=== PATIENT | female | born 1960 | race African-American/Black ===

== ENCOUNTER 2017-03-03 14:34 | Emergency (ER) | payer OTHER ==
[~2017-03-03] VITALS: Ht 162.6 cm; Wt 73.0 kg
[2017-03-03] MEDS ORDERED: SODIUM CHLORIDE 0.9% 1,000 ML IV ONE (20:00)
[2017-03-03] MEDS ORDERED: KETOROLAC 30MG/ML VIAL IV ONE (20:00)
[2017-03-03] MEDS ORDERED: FAMOTIDINE 20MG/2ML VIAL IV ONE (20:00)
[2017-03-03] MEDS ORDERED: ONDANSETRON HCL 4MG/2ML VIAL IV ONE (20:00)
[2017-03-03 20:35] LABS: BASOPHILS % 1.2 % (0.0-2.0); EOSINOPHILS % 0.7 % (0.0-5.0); HEMATOCRIT. 47.1 % (36.0-48.0); HEMOGLOBIN. 15.2 g/dL (12.0-16.0); LYMPHOCYTES % 21.6 % (20.0-50.0); MEAN CORPUSCULAR VOLUME 83.3 fL (81.0-99.0); MONOCYTES % 12.7 % (2.0-8.0); NEUTROPHILS % 63.8 % (40.0-76.0); PLATELET 232 x1000/uL (130-400); RED BLOOD CELL COUNT 5.65 mill/uL (4.2-5.4); RED CELL DISTRIBUTION WIDTH 14.2 % (11.6-14.6)
[2017-03-03 20:38] LABS: CHLORIDE 101 mEq/L (98-107)
[2017-03-03 20:47] LABS: CARBON DIOXIDE 29 mEq/L (21-32)
[2017-03-03 23:40] VITALS: BP 137/78
[2017-03-03] MEDS ORDERED: MAGNESIUM/ALUMINUM HYDROXIDE/SIMETHICONE 30ML UDC PO ONE (23:45)
[2017-03-03] MEDS ORDERED: VISCOUS LIDOCAINE 2% 15 ML UDC MM PRN (23:45)
== END 2017-03-03 23:42 | disposition home or self-care (01) ==
LOC: ER 14:34
DX: R10.10 Upper abdominal pain, unspecified (principal); R11.2 Nausea with vomiting, unspecified; I10 Essential (primary) hypertension; R74.8 Abnormal levels of other serum enzymes
CPT/HCPCS: 36415; 76705; 80053; 85025; 96374; 96375; 99285; J1885; J2405; J3490; J7030

== ENCOUNTER 2017-03-04 05:24 | Emergency (ER) | payer SELFPAY ==
[~2017-03-04] VITALS: Ht 160 cm; Wt 82.0 kg
[2017-03-04] MEDS ORDERED: ONDANSETRON HCL 4MG/2ML VIAL IV STA (10:10)
[2017-03-04 10:25] LABS: BASOPHILS % 0.6 % (0.0-2.0); EOSINOPHILS % 0.1 % (0.0-5.0); HEMATOCRIT. 44.5 % (36.0-48.0); HEMOGLOBIN. 14.5 g/dL (12.0-16.0); LYMPHOCYTES % 17.1 % (20.0-50.0); MEAN CORPUSCULAR HEMOGLOBIN 26.7 pg (28.0-32.0); MEAN CORPUSCULAR VOLUME 82.1 fL (81.0-99.0); MEAN PLATELET VOLUME 7.9 fl (7.4-10.4); MONOCYTES % 9.2 % (2.0-8.0); PLATELET 248 x1000/uL (130-400); RED BLOOD CELL COUNT 5.42 mill/uL (4.2-5.4); RED CELL DISTRIBUTION WIDTH 14.2 % (11.6-14.6)
[2017-03-04 10:31] LABS: CHLORIDE 101 mEq/L (98-107)
[2017-03-04 10:32] LABS: INR 1.2; PROTHROMBIN TIME 12.7 sec (9.4-11.6)
[2017-03-04 10:41] LABS: CARBON DIOXIDE 26 mEq/L (21-32); TROPONIN I < 0.02 ng/mL (0.00-0.04)
[2017-03-04] MEDS ORDERED: CLONIDINE 0.2MG TABLET PO ONE (11:00)
[2017-03-04] MEDS ORDERED: ACETAMINOPHEN 325MG TABLET PO ONE (11:00)
[2017-03-04] MEDS ORDERED: HYDRALAZINE 20MG/ML VIAL IV ONE (14:00)
[2017-03-04 14:01] VITALS: BP 116/74
== END 2017-03-04 15:10 | disposition home or self-care (01) ==
LOC: ER 08:53
DX: I10 Essential (primary) hypertension (principal); F17.210 Nicotine dependence, cigarettes, uncomplicated; Z88.6 Allergy status to analgesic agent
CPT/HCPCS: 36415; 70450; 71010; 80053; 83690; 83880; 84484; 85025; 85610; 93005; 96374; 99285; J2405; Z7610

== ENCOUNTER 2018-04-29 07:07 | Emergency (ER) | payer MEDICARE, MEDICAID ==
[~2018-04-29] VITALS: Ht 157.5 cm; Wt 68.0 kg
[2018-04-29 09:11] LABS: BASOPHILS % 0.9 % (0.0-2.0); EOSINOPHILS % 0.8 % (0.0-5.0); HEMATOCRIT. 48.3 % (36.0-48.0); HEMOGLOBIN. 15.9 g/dL (12.0-16.0); LYMPHOCYTES % 24.4 % (20.0-50.0); MEAN CORPUSCULAR HEMOGLOBIN 27.7 pg (28.0-32.0); MEAN PLATELET VOLUME 8.6 fl (7.4-10.4); MONOCYTES % 8.7 % (2.0-8.0); NEUTROPHILS % 65.2 % (40.0-76.0); PLATELET 227 x1000/uL (130-400); RED BLOOD CELL COUNT 5.75 mill/uL (4.2-5.4); RED CELL DISTRIBUTION WIDTH 14.1 % (11.6-14.6)
[2018-04-29 09:17] LABS: CHLORIDE 102 mEq/L (98-107)
[2018-04-29 09:21] LABS: ETHANOL BLOOD < 10 mg/dL
[2018-04-29 12:07] LABS: *AMPHETAMINES SCREEN URINE NEGATIVE (NEGATIVE); CANNABINOID URINE SCREEN NEGATIVE (NEGATIVE); PHENCYCLIDINE URINE SCREEN NEGATIVE (NEGATIVE)
[2018-04-29 12:18] LABS: *BARBITURATES SCREEN URINE NEGATIVE (NEGATIVE); *BENZODIAZEPINES SCREEN URINE NEGATIVE (NEGATIVE); *COCAINE SCREEN URINE PRESUMTIVE POSITIVE (NEGATIVE); METHADONE URINE SCREEN NEGATIVE (NEGATIVE); OPIATES URINE SCREEN NEGATIVE (NEGATIVE)
[2018-04-29] MEDS ORDERED: LABETALOL HCL 20MG/4ML CARPUJECT IV NR (12:30)
[2018-04-30] MEDS ORDERED: LISINOPRIL 40MG TABLET PO ONE (07:45)
[2018-04-30] MEDS ORDERED: SIMETHICONE 80MG TABLET CHEW PO STA (21:21)
[2018-04-30] MEDS ORDERED: SIMETHICONE 80MG TABLET CHEW PO SCH (21:30)
[2018-05-01] MEDS ORDERED: SIMETHICONE 80MG TABLET CHEW PO SCH (06:00)
[2018-05-01 10:10] VITALS: BP 101/72
== END 2018-05-01 10:11 | disposition home or self-care (01) ==
LOC: ER 07:07
DX: M13.869 Other specified arthritis, unspecified knee (principal); E11.9 Type 2 diabetes mellitus without complications; F14.10 Cocaine abuse, uncomplicated; M41.9 Scoliosis, unspecified; Z79.84 Long term (current) use of oral hypoglycemic drugs; Z88.6 Allergy status to analgesic agent; Z98.890 Other specified postprocedural states; Z99.3 Dependence on wheelchair
CPT/HCPCS: 36415; 80048; 80305; 80307; 80329; 85025; 96374; 99284; G0482; J3490

== ENCOUNTER 2018-07-09 03:37 | Inpatient (IN) | payer MEDICAID, MEDICARE, OTHER ==
[~2018-07-09] VITALS: Ht 165.1 cm; Wt 100.0 kg
[2018-07-09] MEDS ORDERED: SODIUM CHLORIDE 0.9% 1,000 ML IV ONE (04:03)
[2018-07-09] MEDS ORDERED: MORPHINE SULFATE 4 MG/ML CPJ (NOT FOR IM USE) IV STA (04:03)
[2018-07-09] MEDS ORDERED: ONDANSETRON HCL 4MG/2ML INJ IV STA (04:03)
[2018-07-09 04:38] LABS: HEMATOCRIT. 50.5 % (36.0-48.0); MEAN CORPUSCULAR HEMOGLOBIN 27.2 pg (28.0-32.0); MEAN CORPUSCULAR VOLUME 85.7 fL (81.0-99.0); MEAN PLATELET VOLUME 8.6 fl (7.4-10.4); PLATELET 171 x1000/uL (130-400); RED BLOOD CELL COUNT 5.89 mill/uL (4.2-5.4); RED CELL DISTRIBUTION WIDTH 14.9 % (11.6-14.6)
[2018-07-09 05:26] LABS: CHLORIDE 106 mEq/L (98-107)
[2018-07-09 05:28] LABS: PLATELET ESTIMATE NORMAL
[2018-07-09 05:29] LABS: INR 1.2; PROTHROMBIN TIME 12.1 sec (9.1-11.1)
[2018-07-09 05:30] LABS: ETHANOL BLOOD < 10 mg/dL
[2018-07-09] MEDS ORDERED: GUAIFENESIN 200MG/10ML SUGAR FREE UDC PO PRN (12:15)
[2018-07-09] MEDS ORDERED: LORAZEPAM 0.5MG TABLET PO PRN (12:15)
[2018-07-09] MEDS ORDERED: MAGNESIUM/ALUMINUM HYDROXIDE/SIMETHICONE 30ML UDC PO PRN (12:15)
[2018-07-09] MEDS ORDERED: DOCUSATE SODIUM 100MG CAPSULE PO PRN (12:15)
[2018-07-09] MEDS ORDERED: NA PHOS,M-B/NA PHOS,DI-BA ENEMA 118ML PR PRN (12:15)
[2018-07-09] MEDS ORDERED: ACETAMINOPHEN 325MG TABLET PO PRN (12:15)
[2018-07-09] MEDS ORDERED: NITROGLYCERIN 0.4MG TABLET SL SL PRN (12:15)
[2018-07-09] MEDS ORDERED: CLONIDINE 0.1MG TABLET PO PRN (12:15)
[2018-07-09] MEDS ORDERED: IPRATROPIUM/ALBUTEROL 0.5-3(2.5)MG/3ML NEB INH PRN (12:15)
[2018-07-09] MEDS ORDERED: DEXTROSE 50% WATER 50ML SYRINGE IV PRN (12:30)
[2018-07-09 16:00] VITALS: BP 162/72
[2018-07-09 16:47] VITALS: BP 148/86
[2018-07-09] MEDS: BLOOD SUGAR DIAGNOSTIC STRIP TEST SCH ×2 (17:20→20:57)
[2018-07-09] MEDS: METOCLOPRAMIDE 10MG/10 ML UDC PO SCH (17:20)
[2018-07-09] MEDS: INSULIN LISPRO 100 UNITS/ML SUBCUT SCH ×2 (17:50→20:57)
[2018-07-09] MEDS: SUCRALFATE 1 G/10 ML UDC PO SCH ×2 (18:24→20:55)
[2018-07-09 20:00] VITALS: BP 141/71
[2018-07-09] MEDS: METOPROLOL TARTRATE 25MG TABLET PO SCH (20:55)
[2018-07-09] MEDS: ENOXAPARIN 30MG/0.3ML SYR SUBCUT SCH (20:56)
[2018-07-09] MEDS ORDERED: ZOLPIDEM TARTRATE 5MG TABLET PO PRN (21:00)
[2018-07-09] MEDS: ONDANSETRON HCL 4MG/2ML INJ IV PRN (21:02)
[2018-07-10] VITALS: BP 133/71
[2018-07-10 04:00] VITALS: BP 138/74
[2018-07-10] MEDS: SUCRALFATE 1 G/10 ML UDC PO SCH ×4 (06:29→20:23)
[2018-07-10] MEDS: METOCLOPRAMIDE 10MG/10 ML UDC PO SCH ×3 (06:29→17:42)
[2018-07-10] MEDS: BLOOD SUGAR DIAGNOSTIC STRIP TEST SCH ×4 (06:37→20:33)
[2018-07-10] MEDS: INSULIN LISPRO 100 UNITS/ML SUBCUT SCH ×4 (07:50→20:33)
[2018-07-10 08:04] LABS: BASOPHILS % 0.6 % (0.0-2.0); EOSINOPHILS % 0.1 % (0.0-5.0); HEMATOCRIT. 48.8 % (36.0-48.0); HEMOGLOBIN. 15.3 g/dL (12.0-16.0); LYMPHOCYTES % 34.9 % (20.0-50.0); MEAN CORPUSCULAR HEMOGLOBIN 26.9 pg (28.0-32.0); MEAN CORPUSCULAR VOLUME 85.6 fL (81.0-99.0); MEAN PLATELET VOLUME 8.8 fl (7.4-10.4); MONOCYTES % 13.2 % (2.0-8.0); NEUTROPHILS % 51.2 % (40.0-76.0); PLATELET 228 x1000/uL (130-400)
[2018-07-10 08:41] LABS: CHLORIDE 102 mEq/L (98-107)
[2018-07-10 08:53] LABS: AMYLASE 98 IU/L (25-115)
[2018-07-10] MEDS: METOPROLOL TARTRATE 25MG TABLET PO SCH ×2 (09:10→21:20)
[2018-07-10] MEDS: PANTOPRAZOLE SODIUM 40 MG/VIAL IV SCH (09:10)
[2018-07-10] MEDS: ENOXAPARIN 30MG/0.3ML SYR SUBCUT SCH ×2 (09:11→20:23)
[2018-07-10 12:00] VITALS: BP 152/90
[2018-07-10 16:00] VITALS: BP 158/77
[2018-07-10 20:00] VITALS: BP 130/64
[2018-07-10] MEDS: ONDANSETRON HCL 4MG/2ML INJ IV PRN (20:23)
[2018-07-11] VITALS: BP 120/71
[2018-07-11 04:00] VITALS: BP 143/89
[2018-07-11] MEDS: SUCRALFATE 1 G/10 ML UDC PO SCH ×2 (06:36→12:20)
[2018-07-11] MEDS: METOCLOPRAMIDE 10MG/10 ML UDC PO SCH ×2 (06:36→12:20)
[2018-07-11] MEDS: BLOOD SUGAR DIAGNOSTIC STRIP TEST SCH ×2 (06:43→12:20)
[2018-07-11] MEDS: INSULIN LISPRO 100 UNITS/ML SUBCUT SCH ×2 (07:46→12:50)
[2018-07-11 08:00] VITALS: BP 135/85
[2018-07-11] MEDS: METOPROLOL TARTRATE 25MG TABLET PO SCH (09:49)
[2018-07-11] MEDS: PANTOPRAZOLE SODIUM 40 MG/VIAL IV SCH (09:51)
[2018-07-11] MEDS: ENOXAPARIN 30MG/0.3ML SYR SUBCUT SCH (11:17)
[2018-07-11 12:58] VITALS: BP 135/85
== END 2018-07-11 13:59 | disposition home or self-care (01) | DRG 282 ==
LOC: ER 03:37 → 6EST 06:58 → ENRESERV 14:47
PROVIDERS: ADMIT Internal Medicine; ATTEND Internal Medicine
DX: K85.90 Acute pancreatitis without necrosis or infection, unspecified (principal); K31.84 Gastroparesis; E44.1 Mild protein-calorie malnutrition; E11.43 Type 2 diabetes mellitus with diabetic autonomic (poly)neuropathy; M19.90 Unspecified osteoarthritis, unspecified site; I10 Essential (primary) hypertension; Z59.0 Homelessness; Z82.49 Family history of ischemic heart disease and other diseases of the circulatory system; Z82.5 Family history of asthma and other chronic lower respiratory diseases; Z83.3 Family history of diabetes mellitus; Z88.0 Allergy status to penicillin; Z88.9 Allergy status to unspecified drugs, medicaments and biological substances; Z79.4 Long term (current) use of insulin
CPT/HCPCS: 36415; 76705; 80061; 82150; 82962; 83036; 83880; 84484; 93005; 93970; 96374; 96375; 99285; C9113; G0482; J1650; J2270; J2405; J7030; J8597

== ENCOUNTER 2019-03-20 22:35 | Emergency (ER) | payer MEDICAID, OTHER ==
[~2019-03-20] VITALS: Ht 167.6 cm; Wt 103.0 kg
[2019-03-21] MEDS ORDERED: TRAMADOL 50MG TABLET PO ONE (01:15)
[2019-03-21] MEDS ORDERED: AMLODIPINE 5MG TABLET PO ONE ×2 (07:45→21:15)
[2019-03-22] MEDS ORDERED: TRAMADOL 50MG TABLET PO ONE (02:30)
[2019-03-22 14:44] VITALS: BP 148/91
== END 2019-03-22 14:46 | disposition home or self-care (01) ==
LOC: ER 22:35
DX: M19.90 Unspecified osteoarthritis, unspecified site (principal); E11.9 Type 2 diabetes mellitus without complications; I10 Essential (primary) hypertension; Z88.0 Allergy status to penicillin; Z88.6 Allergy status to analgesic agent
CPT/HCPCS: 99283

== ENCOUNTER 2024-10-14 23:19 | Emergency (ER) | payer OTHER, MEDICAID ==
[~2024-10-14] VITALS: Ht 157.5 cm; Wt 129.0 kg
[2024-10-14 23:23] VITALS: BP 167/117; PULSE 118; RESP 20; O2SAT 95
[2024-10-15 02:53] LABS: CHLORIDE 100 mEq/L (98-107); SODIUM 136 mEq/L (136-145)
[2024-10-15 02:54] LABS: CARBON DIOXIDE 29 mEq/L (21-32)
[2024-10-15 02:59] LABS: GLUCOSE 199 mg/dL (70-105)
[2024-10-15 03:00] LABS: UREA NITROGEN BLOOD 18 mg/dL (9-23)
[2024-10-15] MEDS: ACETAMINOPHEN 500MG TABLET PO ONE (03:20)
[2024-10-15 03:26] LABS: BASOPHILS % 0.6 % (0.0-2.0); EOSINOPHILS % 1.8 % (0.0-5.0); HEMATOCRIT. 47.1 % (36.0-48.0); HEMOGLOBIN. 14.9 g/dL (12.0-16.0); LYMPHOCYTES % 23.6 % (20.0-50.0); MEAN CORPUSCULAR HEMOGLOBIN 27.3 pg (28.0-32.0); MEAN CORPUSCULAR HGB CONC 31.5 g/dL (31.0-37.0); MEAN CORPUSCULAR VOLUME 86.5 fL (81.0-99.0); MONOCYTES % 13.6 % (2.0-8.0); NEUTROPHILS % 60.4 % (40.0-76.0); PLATELET 268 x1000/uL (130-400); RED BLOOD CELL COUNT 5.44 mill/uL (4.2-5.4); RED CELL DISTRIBUTION WIDTH 14.4 % (11.6-14.6); WHITE BLOOD COUNT 4.6 x1000/uL (4.5-11.0)
[2024-10-15] MEDS ORDERED: LIDO700A15 TP (04:32)
[2024-10-15] MEDS ORDERED: ACET-2708 MT (04:32)
== END 2024-10-15 05:27 | disposition home or self-care (01) ==
LOC: ER 23:19
DX: S09.90XA Unspecified injury of head, initial encounter (principal); M25.511 Pain in right shoulder; J44.9 Chronic obstructive pulmonary disease, unspecified; I10 Essential (primary) hypertension; E11.9 Type 2 diabetes mellitus without complications; Z88.6 Allergy status to analgesic agent; Z88.0 Allergy status to penicillin; W05.0XXA Fall from non-moving wheelchair, initial encounter; Y93.89 Activity, other specified; Y92.89 Other specified places as the place of occurrence of the external cause; Y99.8 Other external cause status
CPT/HCPCS: 36415; 73030; 80048; 85025; 99284

== ENCOUNTER 2024-10-15 06:14 | Emergency (ER) | payer OTHER, MEDICAID ==
[~2024-10-15] VITALS: Ht 157.5 cm; Wt 109.0 kg
[~2024-10-15 06:14] MED LIST: ACET-2708 MT; LIDO700A15 TP
[2024-10-15 06:21] VITALS: O2SAT 100
[2024-10-15 08:13] VITALS: BP 160/108; PULSE 120; RESP 18; TEMP 36.4; O2SAT 99
== END 2024-10-15 10:04 | disposition home or self-care (01) ==
LOC: ER 06:14
DX: E66.01 Morbid (severe) obesity due to excess calories (principal); J44.9 Chronic obstructive pulmonary disease, unspecified; I10 Essential (primary) hypertension; E11.9 Type 2 diabetes mellitus without complications; Z59.00 Homelessness unspecified; Z88.0 Allergy status to penicillin; Z88.6 Allergy status to analgesic agent
CPT/HCPCS: 99281

== ENCOUNTER 2024-10-21 23:43 | Inpatient (IN) | payer OTHER, MEDICAID ==
[~2024-10-21] VITALS: Ht 162.6 cm; Wt 110.7 kg
[~2024-10-21 23:43] MED LIST changes: +LIDO-53 TP; -LIDO700A15 TP
[2024-10-22] VITALS (14 sets, daily range): BP systolic 117–158; BP diastolic 73–115; PULSE 115–126; RESP 11–29; TEMP 36.8–37.2; O2SAT 93–100
[2024-10-22 01:08] LABS: BASOPHILS % 0.9 % (0.0-2.0); EOSINOPHILS % 0.7 % (0.0-5.0); HEMATOCRIT. 47.3 % (36.0-48.0); HEMOGLOBIN. 14.8 g/dL (12.0-16.0); LYMPHOCYTES % 17.4 % (20.0-50.0); MEAN PLATELET VOLUME 8.0 fl (7.4-10.4); MONOCYTES % 11.6 % (2.0-8.0); NEUTROPHILS % 69.4 % (40.0-76.0); PLATELET 280 x1000/uL (130-400); RED BLOOD CELL COUNT 5.34 mill/uL (4.2-5.4); RED CELL DISTRIBUTION WIDTH 14.8 % (11.6-14.6)
[2024-10-22 01:28] LABS: CREATININE 1.0 mg/dL (0.6-1.0)
[2024-10-22 01:29] LABS: TROPONIN I HIGH SENSITIVITY 26 ng/L (3.0-34); UREA NITROGEN BLOOD 19 mg/dL (9-23)
[2024-10-22] MEDS: FUROSEMIDE 40MG/4ML VIAL IV ONE (01:31)
[2024-10-22] MEDS: HYDRALAZINE 20MG/ML VIAL IV ONE (01:31)
[2024-10-22 01:45] LABS: LACTIC ACID 2.4 mmol/L (0.4-2.0)
[2024-10-22 02:05] LABS: BG BASE EXCESS 2.8 mmol/L (-2.0-3.0); BG CARBOXYHEMOGLOBIN 6.6 % (0.5-1.5); BG DEOXYHEMOGLOBIN 2.0 % (0.0-5.0); BG FRACTION INSPIRED OXYGEN 40; BG HCO3 ACT 29.6 mmol/L (21.0-28.0); BG METHEMOGLOBIN 0.3 % (0.5-1.5); BG OXYGEN SATURATION 97.9 % (94.0-98.0); BG OXYHEMOGLOBIN 91.1 % (94.0-98.0); BG PCO2 53.9 mmHg (32.0-45.0); BG PH 7.358 (7.350-7.450); BG PO2 97.9 mmHg (83.0-108.0); BG SAMPLE SITE RIGHT RADIAL; BG TOTAL HEMOGLOBIN 15.6 g/dL (12.0-16.0); BG TOTAL RESPIRATORY RATE 20 b/min; BG VENT MODE MASK - BIPAP
[2024-10-22 02:07] LABS: TROPONIN I HIGH SENSITIVITY 26 ng/L (3.0-34)
[2024-10-22] MEDS ORDERED: AZITHROMYCIN 500MG/250ML 250 ML IV SCH (03:30)
[2024-10-22] MEDS ORDERED: HYDRALAZINE 20MG/ML VIAL IV PRN (03:30)
[2024-10-22] MEDS ORDERED: MORPHINE SULFATE 2 MG/ML INJ (NOT FOR IM USE) IV PRN (03:30)
[2024-10-22] MEDS ORDERED: CLONIDINE 0.1MG TABLET PO PRN (03:45)
[2024-10-22] MEDS ORDERED: ONDANSETRON HCL 4MG/2ML INJ IV PRN (03:45)
[2024-10-22] MEDS ORDERED: DEXTROSE 50% WATER 50ML SYRINGE IV PRN (04:00)
[2024-10-22] MEDS: METHYLPREDNISOLONE SOD SUCC 125MG/2ML (ACT-O-VIAL) IV SCH (06:48)
[2024-10-22] MEDS: DOXYCYCLINE 100MG/100ML 100 ML IV SCH (06:48)
[2024-10-22] MEDS: BLOOD SUGAR DIAGNOSTIC STRIP TEST SCH (07:30)
[2024-10-22] MEDS: HEPARIN 5000 UNITS/ML VIAL SUBCUT SCH (08:51)
[2024-10-22] MEDS: PANTOPRAZOLE SODIUM 40 MG/VIAL IV SCH (08:51)
[2024-10-22] MEDS: FUROSEMIDE 40MG/4ML VIAL IVP SCH (08:51)
[2024-10-22] MEDS: INSULIN LISPRO 100 UNITS/ML SUBCUT SCH ×3 (08:52→18:38)
[2024-10-22] MEDS: AMLODIPINE 10MG TABLET PO SCH (08:54)
[2024-10-22 12:57] LABS: HEMATOCRIT. 43.2 % (36.0-48.0); HEMOGLOBIN. 13.6 g/dL (12.0-16.0); MEAN PLATELET VOLUME 8.0 fl (7.4-10.4); PLATELET 286 x1000/uL (130-400); RED BLOOD CELL COUNT 5.01 mill/uL (4.2-5.4); RED CELL DISTRIBUTION WIDTH 14.7 % (11.6-14.6)
[2024-10-22 13:14] LABS: TROPONIN I HIGH SENSITIVITY 25 ng/L (3.0-34)
[2024-10-22 13:17] LABS: CREATININE 0.9 mg/dL (0.6-1.0); UREA NITROGEN BLOOD 20 mg/dL (9-23)
[2024-10-22 13:18] LABS: T4 FREE 0.86 ng/dL (0.89-1.76)
[2024-10-22 13:19] LABS: PHOSPHORUS 4.1 mg/dL (2.5-4.9)
[2024-10-22 14:39] LABS: LYMPHOCYTES % MANUAL 8.0 % (20.0-60.0); MONOCYTES % MANUAL 2.0 % (2.0-8.0); NEUTROPHILS % MANUAL 90.0 % (45.0-75.0)
[2024-10-22 14:40] LABS: PLATELET ESTIMATE NORMAL
[2024-10-22] MEDS ORDERED: NALOXONE HCL 0.4MG/ML VIAL IV PRN (15:00)
[2024-10-22] MEDS: MAGNESIUM 2 G PREMIX 50 ML IV NR (17:59)
[2024-10-22] MEDS ORDERED: METHYLPREDNISOLONE SOD SUCC 40MG/ML (ACT-O-VIAL) IV SCH (18:00)
[2024-10-22] MEDS: METOPROLOL TARTRATE 25MG TABLET PO SCH (18:35)
[2024-10-22 20:37] LABS: LACTIC ACID 3.6 mmol/L (0.4-2.0)
[2024-10-22 20:41] LABS: CLARITY URINE CLEAR (CLEAR); COLOR URINE YELLOW (YELLOW); GLUCOSE URINE NEGATIVE (NEGATIVE); KETONES URINE NEGATIVE (NEGATIVE); LEUKOCYTE ESTERASE URINE NEGATIVE (NEGATIVE); NITRITE URINE NEGATIVE (NEGATIVE); OCCULT BLOOD URINE NEGATIVE (NEGATIVE); PH URINE 5.5 (4.5-8.0); PROTEIN URINE NEGATIVE (NEGATIVE); SPECIFIC GRAVITY URINE 1.010 (1.005-1.030); UROBILINOGEN URINE 1.0 E.U./dL (0.2-1.0)
[2024-10-22 21:01] LABS: *AMPHETAMINES SCREEN URINE NEGATIVE (NEGATIVE); *BARBITURATES SCREEN URINE NEGATIVE (NEGATIVE); *BENZODIAZEPINES SCREEN URINE NEGATIVE (NEGATIVE); *COCAINE SCREEN URINE PRESUMPTIVE POSITIVE (NEGATIVE); CANNABINOID URINE SCREEN NEGATIVE (NEGATIVE); ECSTASY MDMA SCREEN URINE NEGATIVE (NEGATIVE); METHADONE URINE SCREEN NEGATIVE (NEGATIVE); OPIATES URINE SCREEN NEGATIVE (NEGATIVE); PHENCYCLIDINE URINE SCREEN NEGATIVE (NEGATIVE)
[2024-10-22] MEDS: INSULIN GLARGINE 100 UNITS/ML SUBCUT SCH (21:11)
[2024-10-22] MEDS: HYDROCODONE/ACETAMINOPHEN 5/325MG TABLET PO PRN (22:18)
[2024-10-23] VITALS (12 sets, daily range): BP systolic 104–162; BP diastolic 58–107; PULSE 114–117; RESP 18–30; TEMP 36.4–37.1; O2SAT 91–98
[2024-10-23 00:13] LABS: BG BASE EXCESS 1.4 mmol/L (-2.0-3.0); BG CARBOXYHEMOGLOBIN 1.7 % (0.5-1.5); BG DEOXYHEMOGLOBIN 9.9 % (0.0-5.0); BG FLOW(L/min) 3.00 L/min; BG FRACTION INSPIRED OXYGEN 32; BG HCO3 ACT 30.3 mmol/L (21.0-28.0); BG METHEMOGLOBIN 0.1 % (0.5-1.5); BG OXYGEN SATURATION 89.9 % (94.0-98.0); BG OXYHEMOGLOBIN 88.3 % (94.0-98.0); BG PCO2 67.5 mmHg (32.0-45.0); BG PH 7.270 (7.350-7.450); BG PO2 63.7 mmHg (83.0-108.0); BG SAMPLE SITE RIGHT RADIAL; BG TOTAL HEMOGLOBIN 14.8 g/dL (12.0-16.0); BG VENT MODE NASAL CANNULA
[2024-10-23 08:17] LABS: INR 1.4
[2024-10-23 08:19] LABS: BASOPHILS % 0.5 % (0.0-2.0); EOSINOPHILS % 0.4 % (0.0-5.0); HEMATOCRIT. 43.1 % (36.0-48.0); HEMOGLOBIN. 13.6 g/dL (12.0-16.0); LYMPHOCYTES % 17.1 % (20.0-50.0); MEAN PLATELET VOLUME 7.9 fl (7.4-10.4); MONOCYTES % 14.2 % (2.0-8.0); NEUTROPHILS % 67.8 % (40.0-76.0); PLATELET 296 x1000/uL (130-400); RED BLOOD CELL COUNT 5.04 mill/uL (4.2-5.4); RED CELL DISTRIBUTION WIDTH 14.6 % (11.6-14.6)
[2024-10-23 08:37] LABS: TRIGLYCERIDE 85 mg/dL (0-150); UREA NITROGEN BLOOD 27 mg/dL (9-23)
[2024-10-23 08:38] LABS: LDL CHOLESTEROL 107 mg/dL (5-100)
[2024-10-23 08:39] LABS: ASPARTATE AMINOTRANSFERASE 24 IU/L (<34); BILIRUBIN DIRECT 0.2 mg/dL (<=3.0); PHOSPHORUS 4.3 mg/dL (2.5-4.9); VITAMIN B12 SERUM 1051 pg/mL (211-911)
[2024-10-23 08:40] LABS: BILIRUBIN TOTAL 0.6 mg/dL (0.1-1.0); PROTEIN TOTAL 6.8 g/dL (6.0-8.3)
[2024-10-23 08:56] LABS: CREATININE 1.4 mg/dL (0.6-1.0)
[2024-10-23 10:12] LABS: BG BASE EXCESS 5.7 mmol/L (-2.0-3.0); BG CARBOXYHEMOGLOBIN 1.6 % (0.5-1.5); BG DEOXYHEMOGLOBIN 11.6 % (0.0-5.0); BG FLOW(L/min) 3.50 L/min; BG FRACTION INSPIRED OXYGEN 34; BG HCO3 ACT 34.0 mmol/L (21.0-28.0); BG METHEMOGLOBIN 0.0 % (0.5-1.5); BG OXYGEN SATURATION 88.2 % (94.0-98.0); BG OXYHEMOGLOBIN 86.8 % (94.0-98.0); BG PCO2 66.5 mmHg (32.0-45.0); BG PH 7.327 (7.350-7.450); BG PO2 58.5 mmHg (83.0-108.0); BG SAMPLE SITE RIGHT RADIAL; BG TOTAL HEMOGLOBIN 14.3 g/dL (12.0-16.0); BG VENT MODE NASAL CANNULA
[2024-10-23] MEDS: PANTOPRAZOLE 40MG DR TABLET PO SCH (12:26)
[2024-10-23] MEDS: HYDRALAZINE HCL 25MG TABLET PO SCH (16:04)
[2024-10-23] MEDS: INSULIN GLARGINE 100 UNITS/ML SUBCUT SCH (21:19)
[2024-10-24] VITALS (7 sets, daily range): BP systolic 117–150; BP diastolic 81–100; PULSE 100–121; RESP 18–28; TEMP 36.4–36.7; O2SAT 94–100
[2024-10-24] MEDS: ACETAMINOPHEN 325MG TABLET PO PRN (00:33)
[2024-10-24] MEDS: LORAZEPAM 0.5MG TABLET PO PRN (00:57)
[2024-10-24] MEDS: FAMOTIDINE 20MG TABLET PO SCH (06:26)
[2024-10-24 06:42] LABS: PLATELET 293 x1000/uL (130-400); RED BLOOD CELL COUNT 5.21 mill/uL (4.2-5.4); RED CELL DISTRIBUTION WIDTH 14.4 % (11.6-14.6)
[2024-10-24 06:50] LABS: CREATININE 1.5 mg/dL (0.6-1.0); UREA NITROGEN BLOOD 35.0 mg/dL (9-23)
[2024-10-24] MEDS: INSULIN LISPRO 100 UNITS/ML SUBCUT SCH (12:23)
[2024-10-24 12:48] LABS: BG BASE EXCESS 6.2 mmol/L (-2.0-3.0); BG CARBOXYHEMOGLOBIN 1.2 % (0.5-1.5); BG DEOXYHEMOGLOBIN 18.5 % (0.0-5.0); BG FRACTION INSPIRED OXYGEN 21; BG HCO3 ACT 32.9 mmol/L (21.0-28.0); BG METHEMOGLOBIN 0.3 % (0.5-1.5); BG OXYGEN SATURATION 81.2 % (94.0-98.0); BG OXYHEMOGLOBIN 80.0 % (94.0-98.0); BG PCO2 55.3 mmHg (32.0-45.0); BG PH 7.392 (7.350-7.450); BG PO2 44.7 mmHg (83.0-108.0); BG SAMPLE SITE RIGHT RADIAL; BG TOTAL HEMOGLOBIN 14.8 g/dL (12.0-16.0); BG VENT MODE ROOM AIR
[2024-10-24] MEDS ORDERED: IPRATROPIUM/ALBUTEROL 0.5-3(2.5)MG/3ML NEB HHN SCH (18:00)
[2024-10-24] MEDS: DILTIAZEM HCL 30MG TABLET PO SCH (18:07)
[2024-10-24] MEDS: BUDESONIDE 0.5MG/2ML NEB HHN SCH (20:40)
[2024-10-24] MEDS: IPRATROPIUM BROMIDE (0.02%) 0.5MG/2.5ML NEB HHN SCH (20:42)
[2024-10-24] MEDS: APIXABAN 5 MG TABLET PO SCH (21:27)
[2024-10-25] VITALS (9 sets, daily range): BP systolic 132–166; BP diastolic 85–95; PULSE 100–122; RESP 18–32; TEMP 36.4–36.9; O2SAT 91–100
[2024-10-25 06:39] LABS: CREATININE 1.1 mg/dL (0.6-1.0); UREA NITROGEN BLOOD 31 mg/dL (9-23)
[2024-10-25 06:41] LABS: PHOSPHORUS 3.0 mg/dL (2.5-4.9)
[2024-10-25] MEDS: MAGNESIUM 2 G PREMIX 50 ML IV NR (11:16)
[2024-10-25] MEDS: MAGNESIUM OXIDE 400MG TABLET PO SCH (12:16)
[2024-10-25] MEDS: DILTIAZEM HCL 60MG TABLET PO SCH (13:13)
[2024-10-25] MEDS ORDERED: POLY17PO3 MT (14:54)
[2024-10-25] MEDS ORDERED: CLON0.1T PO (14:54)
[2024-10-25] MEDS ORDERED: ACETAMINOPHEN 500 MG PO (14:54)
[2024-10-25] MEDS ORDERED: SENN-362 MT (14:54)
[2024-10-26] VITALS (9 sets, daily range): BP systolic 113–141; BP diastolic 80–95; PULSE 104–116; RESP 17–24; TEMP 36.1–36.6; O2SAT 98–100
[2024-10-26 15:26] LABS: PLATELET 265 x1000/uL (130-400); RED BLOOD CELL COUNT 4.83 mill/uL (4.2-5.4); RED CELL DISTRIBUTION WIDTH 14.4 % (11.6-14.6)
[2024-10-26 15:41] LABS: CREATININE 1.0 mg/dL (0.6-1.0); UREA NITROGEN BLOOD 23 mg/dL (9-23)
[2024-10-26] MEDS: METHOCARBAMOL 750MG TABLET PO PRN (18:40)
[2024-10-26] MEDS ORDERED: METHOCARBAMOL 750MG TABLET PO SCH (22:00)
[2024-10-27] VITALS (10 sets, daily range): BP systolic 109–150; BP diastolic 76–95; PULSE 102–115; RESP 17–24; TEMP 36.1–37.1; O2SAT 93–99
[2024-10-27] MEDS: IPRATROPIUM/ALBUTEROL 0.5-3(2.5)MG/3ML NEB HHN PRN (02:35)
[2024-10-27] MEDS: MAGNESIUM/ALUMINUM HYDROXIDE/SIMETHICONE 30ML UDC PO PRN (16:27)
[2024-10-27] MEDS ORDERED: HYDRALAZINE 10 MG in SODIUM CHLORIDE 0.9% 49.5 ML IV PRN (16:30)
[2024-10-27 21:55] LABS: PLATELET 238 x1000/uL (130-400); RED BLOOD CELL COUNT 4.70 mill/uL (4.2-5.4); RED CELL DISTRIBUTION WIDTH 14.4 % (11.6-14.6)
[2024-10-27 22:07] LABS: CREATININE 1.0 mg/dL (0.6-1.0)
[2024-10-27 22:08] LABS: UREA NITROGEN BLOOD 22 mg/dL (9-23)
[2024-10-28] VITALS (8 sets, daily range): BP systolic 120–142; BP diastolic 66–98; PULSE 76–110; RESP 18–24; TEMP 36.2–37.2; O2SAT 93–96
[2024-10-28] MEDS: ACETAMINOPHEN 325MG TABLET PO PRN (03:07)
[2024-10-28 06:12] LABS: PLATELET 239 x1000/uL (130-400); RED BLOOD CELL COUNT 4.64 mill/uL (4.2-5.4); RED CELL DISTRIBUTION WIDTH 14.3 % (11.6-14.6)
[2024-10-28 06:22] LABS: CREATININE 0.9 mg/dL (0.6-1.0)
[2024-10-28 06:23] LABS: UREA NITROGEN BLOOD 24 mg/dL (9-23)
[2024-10-28] MEDS: METOCLOPRAMIDE HCL 5MG TABLET PO SCH (17:31)
[2024-10-28] MEDS ORDERED: HYDRALAZINE 10 MG in SODIUM CHLORIDE 0.9% 49.5 ML IV PRN (19:30)
[2024-10-29] MEDS: LORAZEPAM 0.5MG TABLET PO NR (00:59)
[2024-10-29 02:46] VITALS: PULSE 102; RESP 20; O2SAT 94
[2024-10-29 06:37] LABS: PLATELET 253 x1000/uL (130-400); RED BLOOD CELL COUNT 4.96 mill/uL (4.2-5.4); RED CELL DISTRIBUTION WIDTH 14.7 % (11.6-14.6)
[2024-10-29 06:51] LABS: CREATININE 0.9 mg/dL (0.6-1.0)
[2024-10-29 06:52] LABS: UREA NITROGEN BLOOD 27 mg/dL (9-23)
[2024-10-29 08:00] VITALS: BP 151/97; PULSE 84; RESP 17; TEMP 36.6; O2SAT 98
[2024-10-29 09:39] VITALS: PULSE 106; RESP 28
[2024-10-29 12:00] VITALS: BP 125/89; PULSE 104; RESP 18; TEMP 36.6; O2SAT 95
[2024-10-29 20:00] VITALS: BP 145/91; PULSE 100; RESP 17; TEMP 36.6; O2SAT 98
[2024-10-29 22:48] VITALS: PULSE 103; RESP 22; O2SAT 92
[2024-10-30] VITALS (8 sets, daily range): BP systolic 121–160; BP diastolic 65–111; PULSE 90–102; RESP 17–22; TEMP 35.9–36.7; O2SAT 94–98
[2024-10-30] MEDS ORDERED: FUROSEMIDE 40MG/4ML VIAL IVP SCH (10:45)
[2024-10-30] MEDS: FUROSEMIDE 40MG TABLET PO SCH (12:59)
[2024-10-30] MEDS: IPRATROPIUM/ALBUTEROL 0.5-3(2.5)MG/3ML NEB HHN PRN (15:19)
[2024-10-30] MEDS ORDERED: FUROSEMIDE 20MG TABLET PO SCH (21:00)
[2024-10-31] VITALS (8 sets, daily range): BP systolic 155–159; BP diastolic 84–102; PULSE 46–108; RESP 18–26; TEMP 36.1–36.7; O2SAT 96–100
[2024-10-31] MEDS: DOCUSATE SODIUM 100MG CAPSULE PO NR (03:46)
[2024-10-31] MEDS: FAMOTIDINE 20MG TABLET PO SCH (08:30)
[2024-10-31] MEDS: LACTULOSE 20G/30ML UDC PO SCH (10:48)
[2024-10-31] MEDS: LORAZEPAM 2MG/ML UD SYRINGE IM PRN (13:57)
[2024-11-01] VITALS (7 sets, daily range): BP systolic 132–144; BP diastolic 68–99; PULSE 62–99; RESP 17–22; TEMP 36.1–36.6; O2SAT 95–100
[2024-11-01 13:59] LABS: PLATELET 207 x1000/uL (130-400); RED BLOOD CELL COUNT 4.09 mill/uL (4.2-5.4); RED CELL DISTRIBUTION WIDTH 14.9 % (11.6-14.6)
[2024-11-01 14:16] LABS: CREATININE 0.9 mg/dL (0.6-1.0); UREA NITROGEN BLOOD 26 mg/dL (9-23)
[2024-11-01] MEDS: METHYLPREDNISOLONE SOD SUCC 40MG/ML (ACT-O-VIAL) IV SCH (15:15)
[2024-11-01] MEDS: SODIUM ZIRCONIUM CYCLOSILICATE 10GM/PACKET PO NR (15:15)
[2024-11-01] MEDS ORDERED: DEXTROSE 50% WATER 50ML SYRINGE IV NR (16:00)
[2024-11-01] MEDS: INSULIN REGULAR (HUMULIN R) 1000UNITS/10ML VIAL IV NR (16:00)
[2024-11-01] MEDS: ALBUTEROL (0.083%) 2.5MG/3ML NEB HHN NR (16:48)
[2024-11-01 18:52] LABS: CREATININE 1.0 mg/dL (0.6-1.0); UREA NITROGEN BLOOD 26 mg/dL (9-23)
[2024-11-01] MEDS: SODIUM POLYSTYRENE SULFONATE 15 G/60 ML BOT PO NR (20:16)
[2024-11-02] VITALS (35 sets, daily range): BP systolic 76–190; BP diastolic 38–121; PULSE 71–102; RESP 17–38; TEMP 36.2–36.6; O2SAT 82–100
[2024-11-02] MEDS ORDERED: ATROPINE SULFATE 1MG/10ML SYR ONE (08:00)
[2024-11-02] MEDS ORDERED: HALOPERIDOL LACTATE 5MG/ML VIAL IM NR (15:30)
[2024-11-02] MEDS ORDERED: HALOPERIDOL 2MG TABLET PO PRN (15:30)
[2024-11-02] MEDS ORDERED: CALCIUM GLUCONATE 100MG/ML 10ML VIAL IV ONE (15:45)
[2024-11-02] MEDS: CALCIUM GLUCONATE 1GM PREMIX 50 ML IV NR (17:41)
[2024-11-02] MEDS ORDERED: HYDRALAZINE IV PRN (17:50)
[2024-11-02] MEDS ORDERED: SODIUM CHLORIDE 0.9% IV PRN (17:50)
[2024-11-02] MEDS: HYDRALAZINE 20MG/ML VIAL IV PRN (18:02)
[2024-11-02] MEDS ORDERED: HYDRALAZINE 20MG/ML VIAL IV PRN (18:30)
[2024-11-02 18:37] LABS: BG BASE EXCESS 7.7 mmol/L (-2.0-3.0); BG CARBOXYHEMOGLOBIN 1.5 % (0.5-1.5); BG DEOXYHEMOGLOBIN 8.1 % (0.0-5.0); BG FRACTION INSPIRED OXYGEN 100; BG HCO3 ACT 36.7 mmol/L (21.0-28.0); BG METHEMOGLOBIN 0.0 % (0.5-1.5); BG OXYGEN SATURATION 91.8 % (94.0-98.0); BG OXYHEMOGLOBIN 90.4 % (94.0-98.0); BG PCO2 71.7 mmHg (32.0-45.0); BG PEEP (cmH2O) 5.0 cmH2O; BG PH 7.327 (7.350-7.450); BG PO2 61.9 mmHg (83.0-108.0); BG SAMPLE SITE LEFT RADIAL; BG TIDAL VOLUME(mL) 450.0 mL; BG TOTAL HEMOGLOBIN 14.9 g/dL (12.0-16.0); BG VENT MODE VENT - AC; BG VENT RATE 20.0 set
[2024-11-02 18:47] LABS: PLATELET 269 x1000/uL (130-400); RED BLOOD CELL COUNT 5.37 mill/uL (4.2-5.4); RED CELL DISTRIBUTION WIDTH 14.6 % (11.6-14.6)
[2024-11-02 18:56] LABS: CREATININE 1.2 mg/dL (0.6-1.0); UREA NITROGEN BLOOD 31 mg/dL (9-23)
[2024-11-02] MEDS ORDERED: SODIUM POLYSTYRENE SULFONATE 15 G/60 ML BOT PO ONE (19:15)
[2024-11-02 19:24] LABS: LACTIC ACID 2.7 mmol/L (0.4-2.0)
[2024-11-02] MEDS: PROPOFOL 10MG/ML 100ML 100 ML IV PRN (20:09)
[2024-11-02] MEDS ORDERED: FENTANYL CITRATE/PF 2,500 MCG in SODIUM CHLORIDE 0.9% 200 ML IV PRN (21:00)
[2024-11-02] MEDS: SODIUM ZIRCONIUM CYCLOSILICATE 10GM/PACKET PO NR (21:25)
[2024-11-02 22:50] LABS: BG BASE EXCESS 8.5 mmol/L (-2.0-3.0); BG CARBOXYHEMOGLOBIN 1.5 % (0.5-1.5); BG DEOXYHEMOGLOBIN 5.5 % (0.0-5.0); BG FRACTION INSPIRED OXYGEN 100; BG HCO3 ACT 32.6 mmol/L (21.0-28.0); BG METHEMOGLOBIN 0.3 % (0.5-1.5); BG OXYGEN SATURATION 94.4 % (94.0-98.0); BG OXYHEMOGLOBIN 92.7 % (94.0-98.0); BG PCO2 42.7 mmHg (32.0-45.0); BG PEEP (cmH2O) 8.0 cmH2O; BG PH 7.500 (7.350-7.450); BG PO2 60.6 mmHg (83.0-108.0); BG SAMPLE SITE LEFT RADIAL; BG TIDAL VOLUME(mL) 550.0 mL; BG TOTAL HEMOGLOBIN 13.9 g/dL (12.0-16.0); BG VENT MODE VENT - AC; BG VENT RATE 20.0 set
[2024-11-03] VITALS (79 sets, daily range): BP systolic 81–125; BP diastolic 23–104; PULSE 67–83; RESP 11–27; TEMP 36.6–36.8; O2SAT 93–100
[2024-11-03 00:25] LABS: PLATELET 243 x1000/uL (130-400); RED BLOOD CELL COUNT 5.08 mill/uL (4.2-5.4); RED CELL DISTRIBUTION WIDTH 14.4 % (11.6-14.6)
[2024-11-03 00:36] LABS: CREATININE 1.1 mg/dL (0.6-1.0); UREA NITROGEN BLOOD 34 mg/dL (9-23)
[2024-11-03] MEDS: LIDOCAINE HCL 1% 10 MG/ML 10ML VIAL ONE (07:59)
[2024-11-03 08:41] LABS: BG BASE EXCESS 10.9 mmol/L (-2.0-3.0); BG CARBOXYHEMOGLOBIN 1.2 % (0.5-1.5); BG DEOXYHEMOGLOBIN 5.4 % (0.0-5.0); BG FRACTION INSPIRED OXYGEN 100; BG HCO3 ACT 34.8 mmol/L (21.0-28.0); BG METHEMOGLOBIN 0.3 % (0.5-1.5); BG OXYGEN SATURATION 94.5 % (94.0-98.0); BG OXYHEMOGLOBIN 93.1 % (94.0-98.0); BG PCO2 42.7 mmHg (32.0-45.0); BG PEEP (cmH2O) 10.0 cmH2O; BG PH 7.529 (7.350-7.450); BG PO2 63.1 mmHg (83.0-108.0); BG SAMPLE SITE RIGHT RADIAL; BG TIDAL VOLUME(mL) 525.0 mL; BG TOTAL HEMOGLOBIN 14.2 g/dL (12.0-16.0); BG VENT MODE VENT - AC; BG VENT RATE 20.0 set
[2024-11-03] MEDS: DEXT 5%/0.9% NACL 1,000 ML IV SCH (10:04)
[2024-11-03 11:31] LABS: HEMATOCRIT. 44.9 % (36.0-48.0); HEMOGLOBIN. 14.0 g/dL (12.0-16.0); MEAN PLATELET VOLUME 8.1 fl (7.4-10.4); PLATELET 241 x1000/uL (130-400); RED BLOOD CELL COUNT 5.27 mill/uL (4.2-5.4); RED CELL DISTRIBUTION WIDTH 14.5 % (11.6-14.6)
[2024-11-03 11:37] LABS: CREATININE 1.2 mg/dL (0.6-1.0)
[2024-11-03 11:38] LABS: UREA NITROGEN BLOOD 35.0 mg/dL (9-23)
[2024-11-03] MEDS: DEXTROSE 50% WATER 50ML SYRINGE IV SCH (12:44)
[2024-11-03] MEDS: INSULIN REGULAR (HUMULIN R) 1000UNITS/10ML VIAL IV SCH (13:01)
[2024-11-03] MEDS: CALCIUM GLUCONATE 100MG/ML 10ML VIAL IV SCH (13:02)
[2024-11-03] MEDS: ALBUTEROL (0.083%) 2.5MG/3ML NEB HHN SCH (13:03)
[2024-11-03 14:05] LABS: BAND% 3.0 % (1.0-6.0); LYMPHOCYTES % MANUAL 5.0 % (20.0-60.0); MONOCYTES % MANUAL 8.0 % (2.0-8.0); NEUTROPHILS % MANUAL 84.0 % (45.0-75.0); PLATELET ESTIMATE NORMAL
[2024-11-03] MEDS: PROPOFOL 10MG/ML 100ML 100 ML IV PRN (18:14)
[2024-11-03] MEDS ORDERED: ALBUTEROL (0.083%) 2.5MG/3ML NEB HHN NR (18:45)
[2024-11-03] MEDS: DEXTROSE 50% WATER 50ML SYRINGE IV NR (20:08)
[2024-11-03] MEDS: SODIUM ZIRCONIUM CYCLOSILICATE 10GM/PACKET PO NR (20:08)
[2024-11-03] MEDS: CALCIUM CHLORIDE 1GM/10ML SYR IV NR (20:09)
[2024-11-03] MEDS: INSULIN REGULAR (HUMULIN R) 1000UNITS/10ML VIAL IV NR (20:10)
[2024-11-03] MEDS: DOXYCYCLINE 100MG/100ML 100 ML IV SCH (21:34)
[2024-11-03 22:41] LABS: CREATININE 1.3 mg/dL (0.6-1.0); UREA NITROGEN BLOOD 34 mg/dL (9-23)
[2024-11-04] VITALS (112 sets, daily range): BP systolic 68–239; BP diastolic 41–163; PULSE 68–90; RESP 0–27; TEMP 36.7–37.1; O2SAT 85–100
[2024-11-04] MEDS ORDERED: FUROSEMIDE 40MG/4ML VIAL IVP ONE (01:15)
[2024-11-04] MEDS: FUROSEMIDE 40MG/4ML VIAL IVP NR (01:30)
[2024-11-04 06:27] LABS: BASOPHILS % 0.1 % (0.0-2.0); EOSINOPHILS % 0.1 % (0.0-5.0); HEMATOCRIT. 43.3 % (36.0-48.0); HEMOGLOBIN. 14.1 g/dL (12.0-16.0); LYMPHOCYTES % 8.1 % (20.0-50.0); MEAN PLATELET VOLUME 8.2 fl (7.4-10.4); MONOCYTES % 8.1 % (2.0-8.0); NEUTROPHILS % 83.6 % (40.0-76.0); PLATELET 309 x1000/uL (130-400); RED BLOOD CELL COUNT 5.17 mill/uL (4.2-5.4); RED CELL DISTRIBUTION WIDTH 14.4 % (11.6-14.6)
[2024-11-04 07:04] LABS: CREATININE 1.5 mg/dL (0.6-1.0); TROPONIN I HIGH SENSITIVITY 14 ng/L (3.0-34); UREA NITROGEN BLOOD 38 mg/dL (9-23)
[2024-11-04 07:05] LABS: ASPARTATE AMINOTRANSFERASE 36 IU/L (<34)
[2024-11-04 07:06] LABS: BILIRUBIN TOTAL 0.5 mg/dL (0.1-1.0); PROTEIN TOTAL 6.6 g/dL (6.0-8.3)
[2024-11-04 07:08] LABS: T4 FREE 0.90 ng/dL (0.89-1.76)
[2024-11-04 07:16] LABS: ERYTHROCYTE SEDIMENTATION RATE 7 mm/hr (0-30)
[2024-11-04] MEDS: LIDOCAINE HCL 1% 10 MG/ML 10ML VIAL ONE (08:23)
[2024-11-04 08:44] LABS: BG BASE EXCESS 8.8 mmol/L (-2.0-3.0); BG CARBOXYHEMOGLOBIN 1.0 % (0.5-1.5); BG DEOXYHEMOGLOBIN 4.0 % (0.0-5.0); BG FRACTION INSPIRED OXYGEN 100; BG HCO3 ACT 33.2 mmol/L (21.0-28.0); BG METHEMOGLOBIN 0.3 % (0.5-1.5); BG OXYGEN SATURATION 95.9 % (94.0-98.0); BG OXYHEMOGLOBIN 94.7 % (94.0-98.0); BG PCO2 44.5 mmHg (32.0-45.0); BG PEEP (cmH2O) 10.0 cmH2O; BG PH 7.491 (7.350-7.450); BG PO2 77.1 mmHg (83.0-108.0); BG SAMPLE SITE RIGHT RADIAL; BG TIDAL VOLUME(mL) 525.0 mL; BG TOTAL HEMOGLOBIN 14.5 g/dL (12.0-16.0); BG VENT MODE VENT - AC; BG VENT RATE 16.0 set
[2024-11-04 17:57] LABS: HEPATITIS A AB IGM NEGATIVE (Negative)
[2024-11-04 17:58] LABS: HEPATITIS B CORE AB IGM NEGATIVE (Negative)
[2024-11-04 18:32] LABS: HEPATITIS C AB REACTIVE (Pos) (Negative)
[2024-11-04] MEDS: NOREPINEPHRINE 8MG/250ML PMX 250 ML IV PRN (18:58)
[2024-11-04 20:42] LABS: CLARITY URINE BLOODY (CLEAR); COLOR URINE BROWN (YELLOW); PH URINE 8.5 (4.5-8.0); SPECIFIC GRAVITY URINE 1.010 (1.005-1.030)
[2024-11-04 20:43] LABS: GLUCOSE URINE 1+ (NEGATIVE); PROTEIN URINE 3+ (NEGATIVE)
[2024-11-04 20:44] LABS: KETONES URINE 1+ (NEGATIVE); LEUKOCYTE ESTERASE URINE 2+ (NEGATIVE); NITRITE URINE POSITIVE (NEGATIVE); OCCULT BLOOD URINE 3+ (NEGATIVE); UROBILINOGEN URINE 2.0 E.U./dL (0.2-1.0)
[2024-11-04 20:48] LABS: RBC URINE TNTC /hpf (0-2)
[2024-11-04 20:49] LABS: BACTERIA URINE 3+; TRIPLE PHOSPHATE CRYSTAL URINE 1+ /lpf; WBC URINE 15-25 /hpf (0-2)
[2024-11-04 21:06] LABS: *AMPHETAMINES SCREEN URINE NEGATIVE (NEGATIVE); *BARBITURATES SCREEN URINE NEGATIVE (NEGATIVE); *BENZODIAZEPINES SCREEN URINE NEGATIVE (NEGATIVE); *COCAINE SCREEN URINE NEGATIVE (NEGATIVE); METHADONE URINE SCREEN NEGATIVE (NEGATIVE); OPIATES URINE SCREEN NEGATIVE (NEGATIVE)
[2024-11-04 21:07] LABS: CANNABINOID URINE SCREEN NEGATIVE (NEGATIVE); ECSTASY MDMA SCREEN URINE NEGATIVE (NEGATIVE); PHENCYCLIDINE URINE SCREEN NEGATIVE (NEGATIVE)
[2024-11-04 21:10] LABS: SODIUM URINE RANDOM 19 mEq/L
[2024-11-04 21:17] LABS: OSMOLALITY URINE 364 mOsm/kg (500-850)
[2024-11-04] MEDS: PROPOFOL 10MG/ML 100ML 100 ML IV SCH (21:37)
[2024-11-05] VITALS (107 sets, daily range): BP systolic 83–163; BP diastolic 54–113; PULSE 73–84; RESP 0–21; TEMP 35.9–37.11408; O2SAT 93–100
[2024-11-05 06:08] LABS: *CREATININE RANDOM URINE 68.1 mg/dL (Not Estab.); MICROALBUMIN RANDOM URINE 582.2 ug/mL (Not Estab.); MICROALBUMIN/CREATININE RATIO 855.0 mg/g creat (0-29)
[2024-11-05 06:44] LABS: PLATELET 298 x1000/uL (130-400); RED BLOOD CELL COUNT 5.10 mill/uL (4.2-5.4); RED CELL DISTRIBUTION WIDTH 14.4 % (11.6-14.6)
[2024-11-05 07:08] LABS: TRIGLYCERIDE 101 mg/dL (0-150); UREA NITROGEN BLOOD 44 mg/dL (9-23)
[2024-11-05 07:09] LABS: PHOSPHORUS 5.9 mg/dL (2.5-4.9)
[2024-11-05 07:29] LABS: CREATININE 2.0 mg/dL (0.6-1.0)
[2024-11-05] MEDS: SODIUM BICARBONATE 8.4% 50MEQ/50ML SYR IV SCH (07:56)
[2024-11-05] MEDS: DEXTROSE 50% WATER 50ML SYRINGE IV SCH (07:56)
[2024-11-05] MEDS: INSULIN REGULAR (HUMULIN R) 1000UNITS/10ML VIAL IV SCH (07:57)
[2024-11-05] MEDS: CALCIUM GLUCONATE 1GM PREMIX 50 ML IV SCH (08:14)
[2024-11-05 08:51] LABS: BG BASE EXCESS 2.8 mmol/L (-2.0-3.0); BG CARBOXYHEMOGLOBIN 1.1 % (0.5-1.5); BG DEOXYHEMOGLOBIN 4.3 % (0.0-5.0); BG FRACTION INSPIRED OXYGEN 100; BG HCO3 ACT 27.5 mmol/L (21.0-28.0); BG METHEMOGLOBIN 0.0 % (0.5-1.5); BG OXYGEN SATURATION 95.7 % (94.0-98.0); BG OXYHEMOGLOBIN 94.6 % (94.0-98.0); BG PCO2 42.6 mmHg (32.0-45.0); BG PEEP (cmH2O) 10.0 cmH2O; BG PH 7.428 (7.350-7.450); BG PO2 77.1 mmHg (83.0-108.0); BG SAMPLE SITE RIGHT RADIAL; BG TIDAL VOLUME(mL) 525.0 mL; BG TOTAL HEMOGLOBIN 14.2 g/dL (12.0-16.0); BG VENT MODE VENT - AC; BG VENT RATE 16.0 set
[2024-11-05 09:07] LABS: FOLICLE STIMULATING HORMONE 1.4 mIU/mL (25.8-134.8); LUTEINIZING HORMONE 1.7 mIU/mL (7.7-58.5); PROLACTIN 102.0 ng/mL (3.6-25.2)
[2024-11-05 17:40] LABS: COLOR URINE RED (YELLOW)
[2024-11-05 17:41] LABS: CLARITY URINE TURBID (CLEAR); GLUCOSE URINE NEGATIVE (NEGATIVE); KETONES URINE 1+ (NEGATIVE); PH URINE 8.0 (4.5-8.0); PROTEIN URINE 3+ (NEGATIVE); SPECIFIC GRAVITY URINE 1.015 (1.005-1.030)
[2024-11-05 17:42] LABS: LEUKOCYTE ESTERASE URINE 2+ (NEGATIVE); NITRITE URINE POSITIVE (NEGATIVE); OCCULT BLOOD URINE 3+ (NEGATIVE); UROBILINOGEN URINE 2.0 E.U./dL (0.2-1.0)
[2024-11-05 17:48] LABS: BACTERIA URINE 4+
[2024-11-05 17:49] LABS: RBC URINE TNTC /hpf (0-2); SQUAMOUS EPITHELIAL CELL URINE 1+ /lpf (RARE/1+); TRIPLE PHOSPHATE CRYSTAL URINE 2+ /lpf
[2024-11-05] MEDS ORDERED: INSULIN LISPRO 100 UNITS/ML SUBCUT SCH (21:00)
[2024-11-05] MEDS: PROPOFOL 10MG/ML 100ML 100 ML IV PRN (21:53)
[2024-11-06] VITALS (105 sets, daily range): BP systolic 82–183; BP diastolic 51–148; PULSE 76–86; RESP 0–25; TEMP 36.4–37.6; O2SAT 85–100
[2024-11-06] MEDS: BLOOD SUGAR DIAGNOSTIC STRIP TEST SCH (00:06)
[2024-11-06] MEDS: INSULIN LISPRO (LOW DOSE) 100 UNITS/ML SUBCUT SCH (00:11)
[2024-11-06] MEDS: INSULIN LISPRO 100 UNITS/ML SUBCUT SCH (00:12)
[2024-11-06 07:34] LABS: HEMATOCRIT. 42.4 % (36.0-48.0); HEMOGLOBIN. 13.6 g/dL (12.0-16.0); MEAN PLATELET VOLUME 8.2 fl (7.4-10.4); PLATELET 323 x1000/uL (130-400); RED BLOOD CELL COUNT 5.06 mill/uL (4.2-5.4); RED CELL DISTRIBUTION WIDTH 14.5 % (11.6-14.6)
[2024-11-06 07:47] LABS: CREATININE 2.2 mg/dL (0.6-1.0)
[2024-11-06 07:48] LABS: TRIGLYCERIDE 73 mg/dL (0-150); UREA NITROGEN BLOOD 46 mg/dL (9-23)
[2024-11-06 07:49] LABS: LACTATE DEHYDROGENASE 250 IU/L (120-246); PHOSPHORUS 6.1 mg/dL (2.5-4.9)
[2024-11-06 08:27] LABS: BAND% 3.0 % (1.0-6.0); LYMPHOCYTES % MANUAL 7.0 % (20.0-60.0); MONOCYTES % MANUAL 8.0 % (2.0-8.0); NEUTROPHILS % MANUAL 82.0 % (45.0-75.0); PLATELET ESTIMATE NORMAL
[2024-11-06] MEDS: FAMOTIDINE 20MG TABLET PO SCH (08:27)
[2024-11-06] MEDS: LIDOCAINE HCL 1% 10 MG/ML 10ML VIAL ONE (08:36)
[2024-11-06 09:02] LABS: BG BASE EXCESS 2.0 mmol/L (-2.0-3.0); BG CARBOXYHEMOGLOBIN 1.0 % (0.5-1.5); BG DEOXYHEMOGLOBIN 10.2 % (0.0-5.0); BG FRACTION INSPIRED OXYGEN 80; BG HCO3 ACT 27.3 mmol/L (21.0-28.0); BG METHEMOGLOBIN 0.3 % (0.5-1.5); BG OXYGEN SATURATION 89.7 % (94.0-98.0); BG OXYHEMOGLOBIN 88.5 % (94.0-98.0); BG PCO2 45.1 mmHg (32.0-45.0); BG PEEP (cmH2O) 10.0 cmH2O; BG PH 7.400 (7.350-7.450); BG PO2 61.3 mmHg (83.0-108.0); BG SAMPLE SITE RIGHT RADIAL; BG TIDAL VOLUME(mL) 525.0 mL; BG TOTAL HEMOGLOBIN 15.0 g/dL (12.0-16.0); BG VENT MODE VENT - AC; BG VENT RATE 16.0 set
[2024-11-06] MEDS: FENTANYL 2500MCG/250ML PMX 250 ML IV PRN (17:47)
[2024-11-06] MEDS: IOHEXOL-350 100 ML BOTTLE ONE (19:54)
[2024-11-06] MEDS: ACETAMINOPHEN 325MG TABLET PO PRN (20:48)
[2024-11-07] VITALS (103 sets, daily range): BP systolic 85–171; BP diastolic 62–116; PULSE 74–96; RESP 0–28; TEMP 36–37.9; O2SAT 91–100
[2024-11-07] MEDS ORDERED: FENTANYL 2500MCG/250ML PMX 250 ML IV PRN (02:00)
[2024-11-07 09:06] LABS: BG BASE EXCESS 3.3 mmol/L (-2.0-3.0); BG CARBOXYHEMOGLOBIN 1.0 % (0.5-1.5); BG DEOXYHEMOGLOBIN 11.6 % (0.0-5.0); BG FRACTION INSPIRED OXYGEN 80; BG HCO3 ACT 30.3 mmol/L (21.0-28.0); BG METHEMOGLOBIN 0.0 % (0.5-1.5); BG OXYGEN SATURATION 88.3 % (94.0-98.0); BG OXYHEMOGLOBIN 87.4 % (94.0-98.0); BG PCO2 55.7 mmHg (32.0-45.0); BG PEEP (cmH2O) 5.0 cmH2O; BG PH 7.353 (7.350-7.450); BG PO2 57.9 mmHg (83.0-108.0); BG SAMPLE SITE RIGHT RADIAL; BG TIDAL VOLUME(mL) 525.0 mL; BG TOTAL HEMOGLOBIN 14.6 g/dL (12.0-16.0); BG VENT MODE VENT - AC; BG VENT RATE 16.0 set
[2024-11-07 10:05] LABS: CREATININE 2.5 mg/dL (0.6-1.0); HEMATOCRIT. 41.6 % (36.0-48.0); HEMOGLOBIN. 13.0 g/dL (12.0-16.0); MEAN PLATELET VOLUME 8.1 fl (7.4-10.4); PLATELET 255 x1000/uL (130-400); RED BLOOD CELL COUNT 4.89 mill/uL (4.2-5.4); RED CELL DISTRIBUTION WIDTH 14.9 % (11.6-14.6)
[2024-11-07 10:06] LABS: UREA NITROGEN BLOOD 58 mg/dL (9-23)
[2024-11-07 10:09] LABS: PHOSPHORUS 6.6 mg/dL (2.5-4.9)
[2024-11-07 11:15] LABS: BAND% 4.0 % (1.0-6.0); LYMPHOCYTES % MANUAL 1.0 % (20.0-60.0); MONOCYTES % MANUAL 5.0 % (2.0-8.0); NEUTROPHILS % MANUAL 90.0 % (45.0-75.0); PLATELET ESTIMATE NORMAL
[2024-11-07] MEDS: PROPOFOL 10MG/ML 100ML 100 ML IV PRN (13:36)
[2024-11-07] MEDS: AZTREONAM 1 G in DEXTROSE 5% WATER 50 ML IV SCH (18:27)
[2024-11-08] VITALS (95 sets, daily range): BP systolic 80–106; BP diastolic 49–80; PULSE 73–92; RESP 0–24; TEMP 36.1–37.2; O2SAT 87–100
[2024-11-08] MEDS: PROPOFOL 10MG/ML 100ML 100 ML IV PRN (03:55)
[2024-11-08 07:20] LABS: HEMATOCRIT. 40.8 % (36.0-48.0); HEMOGLOBIN. 12.8 g/dL (12.0-16.0); MEAN PLATELET VOLUME 8.3 fl (7.4-10.4); PLATELET 211 x1000/uL (130-400); RED BLOOD CELL COUNT 4.80 mill/uL (4.2-5.4); RED CELL DISTRIBUTION WIDTH 14.7 % (11.6-14.6)
[2024-11-08 07:37] LABS: CREATININE 2.5 mg/dL (0.6-1.0); TRIGLYCERIDE 80.0 mg/dL (0-150); UREA NITROGEN BLOOD 53.0 mg/dL (9-23)
[2024-11-08 08:57] LABS: LYMPHOCYTES % MANUAL 2.0 % (20.0-60.0); MONOCYTES % MANUAL 9.0 % (2.0-8.0); NEUTROPHILS % MANUAL 89.0 % (45.0-75.0); PLATELET ESTIMATE NORMAL
[2024-11-08 10:26] LABS: BG BASE EXCESS 4.1 mmol/L (-2.0-3.0); BG CARBOXYHEMOGLOBIN 1.1 % (0.5-1.5); BG DEOXYHEMOGLOBIN 11.4 % (0.0-5.0); BG FRACTION INSPIRED OXYGEN 55; BG HCO3 ACT 29.9 mmol/L (21.0-28.0); BG METHEMOGLOBIN 0.3 % (0.5-1.5); BG OXYGEN SATURATION 88.4 % (94.0-98.0); BG OXYHEMOGLOBIN 87.2 % (94.0-98.0); BG PCO2 49.4 mmHg (32.0-45.0); BG PEEP (cmH2O) 5.0 cmH2O; BG PH 7.400 (7.350-7.450); BG PO2 54.8 mmHg (83.0-108.0); BG SAMPLE SITE LEFT RADIAL; BG TIDAL VOLUME(mL) 525.0 mL; BG TOTAL HEMOGLOBIN 13.5 g/dL (12.0-16.0); BG TOTAL RESPIRATORY RATE 20 b/min; BG VENT MODE VENT - AC; BG VENT RATE 20.0 set
[2024-11-08] MEDS: POTASSIUM CHLORIDE 20MEQ/PACKET NG NR (11:10)
[2024-11-08] MEDS: MIDODRINE HCL 5MG TABLET PO SCH (21:49)
[2024-11-09] VITALS (103 sets, daily range): BP systolic 84–210; BP diastolic 50–114; PULSE 66–87; RESP 12–23; TEMP 36.4–37.6; O2SAT 79–100
[2024-11-09] MEDS: AZTREONAM 2GM in DEXTROSE 5% WATER 100ML IV SCH (01:57)
[2024-11-09 07:14] LABS: HEMATOCRIT. 39.7 % (36.0-48.0); HEMOGLOBIN. 12.6 g/dL (12.0-16.0); MEAN PLATELET VOLUME 8.5 fl (7.4-10.4); PLATELET 245 x1000/uL (130-400); RED BLOOD CELL COUNT 4.71 mill/uL (4.2-5.4); RED CELL DISTRIBUTION WIDTH 14.6 % (11.6-14.6)
[2024-11-09 07:44] LABS: CREATININE 3.1 mg/dL (0.6-1.0); TRIGLYCERIDE 75.0 mg/dL (0-150); UREA NITROGEN BLOOD 70.0 mg/dL (9-23)
[2024-11-09 08:49] LABS: BG BASE EXCESS 1.1 mmol/L (-2.0-3.0); BG CARBOXYHEMOGLOBIN 0.6 % (0.5-1.5); BG DEOXYHEMOGLOBIN 9.1 % (0.0-5.0); BG FRACTION INSPIRED OXYGEN 80; BG HCO3 ACT 26.5 mmol/L (21.0-28.0); BG METHEMOGLOBIN 0.3 % (0.5-1.5); BG OXYGEN SATURATION 90.8 % (94.0-98.0); BG OXYHEMOGLOBIN 90.0 % (94.0-98.0); BG PCO2 45.2 mmHg (32.0-45.0); BG PEEP (cmH2O) 5.0 cmH2O; BG PH 7.386 (7.350-7.450); BG PO2 60.9 mmHg (83.0-108.0); BG SAMPLE SITE LEFT RADIAL; BG TIDAL VOLUME(mL) 525.0 mL; BG TOTAL HEMOGLOBIN 13.7 g/dL (12.0-16.0); BG TOTAL RESPIRATORY RATE 20 b/min; BG VENT MODE VENT - AC; BG VENT RATE 20.0 set
[2024-11-09 09:56] LABS: BAND% 5.0 % (1.0-6.0); LYMPHOCYTES % MANUAL 5.0 % (20.0-60.0); MONOCYTES % MANUAL 16.0 % (2.0-8.0); NEUTROPHILS % MANUAL 74.0 % (45.0-75.0); NUCLEATED RED BLOOD CELLS 1 /100 WBC
[2024-11-09 09:57] LABS: PLATELET ESTIMATE NORMAL
[2024-11-09] MEDS: MIDODRINE HCL 5MG TABLET PO SCH (14:00)
[2024-11-10] VITALS (104 sets, daily range): BP systolic 82–131; BP diastolic 49–86; PULSE 55–84; RESP 19–27; TEMP 36.6–37; O2SAT 92–100
[2024-11-10] MEDS: METHYLPREDNISOLONE SOD SUCC 125MG/2ML (ACT-O-VIAL) IV SCH (05:47)
[2024-11-10 05:59] LABS: CREATININE 3.2 mg/dL (0.6-1.0); UREA NITROGEN BLOOD 64.0 mg/dL (9-23)
[2024-11-10 06:12] LABS: PLATELET 241 x1000/uL (130-400); RED BLOOD CELL COUNT 5.24 mill/uL (4.2-5.4); RED CELL DISTRIBUTION WIDTH 14.9 % (11.6-14.6)
[2024-11-10 08:37] LABS: BG BASE EXCESS -0.4 mmol/L (-2.0-3.0); BG CARBOXYHEMOGLOBIN 0.7 % (0.5-1.5); BG DEOXYHEMOGLOBIN 4.3 % (0.0-5.0); BG FRACTION INSPIRED OXYGEN 80; BG HCO3 ACT 23.4 mmol/L (21.0-28.0); BG METHEMOGLOBIN 0.3 % (0.5-1.5); BG OXYGEN SATURATION 95.7 % (94.0-98.0); BG OXYHEMOGLOBIN 94.7 % (94.0-98.0); BG PCO2 36.1 mmHg (32.0-45.0); BG PEEP (cmH2O) 5.0 cmH2O; BG PH 7.430 (7.350-7.450); BG PO2 76.7 mmHg (83.0-108.0); BG SAMPLE SITE RIGHT RADIAL; BG TIDAL VOLUME(mL) 525.0 mL; BG TOTAL HEMOGLOBIN 14.0 g/dL (12.0-16.0); BG VENT MODE VENT - AC/VC; BG VENT RATE 20.0 set
[2024-11-11] VITALS (104 sets, daily range): BP systolic 99–155; BP diastolic 65–106; PULSE 50–84; RESP 14–35; TEMP 36.6696–37.1; O2SAT 80–100
[2024-11-11 05:22] LABS: HEMATOCRIT. 41.8 % (36.0-48.0); HEMOGLOBIN. 13.2 g/dL (12.0-16.0); MEAN PLATELET VOLUME 8.4 fl (7.4-10.4); PLATELET 249 x1000/uL (130-400); RED BLOOD CELL COUNT 5.01 mill/uL (4.2-5.4); RED CELL DISTRIBUTION WIDTH 14.5 % (11.6-14.6)
[2024-11-11 05:31] LABS: CREATININE 3.7 mg/dL (0.6-1.0)
[2024-11-11 05:33] LABS: UREA NITROGEN BLOOD 86 mg/dL (9-23)
[2024-11-11] MEDS ORDERED: METHYLPREDNISOLONE SOD SUCC 40MG/ML (ACT-O-VIAL) IV SCH (08:00)
[2024-11-11] MEDS: BISACODYL 10MG SUPP PR NR (08:32)
[2024-11-11] MEDS: METHYLPREDNISOLONE SOD SUCC 125MG/2ML (ACT-O-VIAL) IV SCH (08:45)
[2024-11-11 08:54] LABS: BG BASE EXCESS -0.7 mmol/L (-2.0-3.0); BG CARBOXYHEMOGLOBIN 0.6 % (0.5-1.5); BG DEOXYHEMOGLOBIN 11.1 % (0.0-5.0); BG FRACTION INSPIRED OXYGEN 70; BG HCO3 ACT 24.7 mmol/L (21.0-28.0); BG METHEMOGLOBIN 0.3 % (0.5-1.5); BG OXYGEN SATURATION 88.8 % (94.0-98.0); BG OXYHEMOGLOBIN 88.0 % (94.0-98.0); BG PCO2 43.5 mmHg (32.0-45.0); BG PEEP (cmH2O) 5.0 cmH2O; BG PH 7.372 (7.350-7.450); BG PO2 58.1 mmHg (83.0-108.0); BG SAMPLE SITE RIGHT RADIAL; BG TIDAL VOLUME(mL) 525.0 mL; BG TOTAL HEMOGLOBIN 15.4 g/dL (12.0-16.0); BG VENT MODE VENT - AC; BG VENT RATE 20.0 set
[2024-11-11 09:01] LABS: BAND% 4.0 % (1.0-6.0); LYMPHOCYTES % MANUAL 10.0 % (20.0-60.0); MONOCYTES % MANUAL 10.0 % (2.0-8.0); NEUTROPHILS % MANUAL 76.0 % (45.0-75.0); PLATELET ESTIMATE NORMAL
[2024-11-11] MEDS ORDERED: SODIUM CHLORIDE 3% FOR INH 15ML NEB INH SCH ×2 (20:00→21:00)
[2024-11-11] MEDS: IPRATROPIUM/ALBUTEROL 0.5-3(2.5)MG/3ML NEB HHN SCH (20:57)
[2024-11-12] VITALS (93 sets, daily range): BP systolic 106–154; BP diastolic 74–127; PULSE 46–75; RESP 0–27; TEMP 36.4–37.2; O2SAT 63–99
[2024-11-12] MEDS: METHYLPREDNISOLONE SOD SUCC 125MG/2ML (ACT-O-VIAL) IV SCH (08:49)
[2024-11-12 08:59] LABS: BG BASE EXCESS 0.1 mmol/L (-2.0-3.0); BG CARBOXYHEMOGLOBIN 0.4 % (0.5-1.5); BG DEOXYHEMOGLOBIN 2.4 % (0.0-5.0); BG FRACTION INSPIRED OXYGEN 100; BG HCO3 ACT 24.5 mmol/L (21.0-28.0); BG METHEMOGLOBIN 0.3 % (0.5-1.5); BG OXYGEN SATURATION 97.6 % (94.0-98.0); BG OXYHEMOGLOBIN 96.9 % (94.0-98.0); BG PCO2 39.3 mmHg (32.0-45.0); BG PEEP (cmH2O) 12.0 cmH2O; BG PH 7.413 (7.350-7.450); BG PO2 96.1 mmHg (83.0-108.0); BG SAMPLE SITE LEFT RADIAL; BG TIDAL VOLUME(mL) 500.0 mL; BG TOTAL HEMOGLOBIN 14.7 g/dL (12.0-16.0); BG VENT MODE VENT - PRVC; BG VENT RATE 20.0 set
[2024-11-12] MEDS: POLYETHYLENE GLYCOL 3350 (17GM) 1 DOSE PACK PO SCH (17:33)
[2024-11-12] MEDS: ENOXAPARIN 40MG/0.4ML SYR SUBCUT SCH (21:00)
[2024-11-12] MEDS: LACTULOSE 20G/30ML UDC PO SCH (21:00)
[2024-11-12] MEDS ORDERED: LACTULOSE 20G/30ML UDC PO SCH (22:00)
[2024-11-13] VITALS (95 sets, daily range): BP systolic 101–149; BP diastolic 64–104; PULSE 50–81; RESP 0–25; TEMP 36.44736–37.1; O2SAT 86–100
[2024-11-13 04:07] LABS: ANA IFA Positive (.); ANA SPECKLED PATTERN 1:80 (.)
[2024-11-13 07:15] LABS: HEMATOCRIT. 43.6 % (36.0-48.0); HEMOGLOBIN. 13.9 g/dL (12.0-16.0); MEAN PLATELET VOLUME 8.5 fl (7.4-10.4); PLATELET 236 x1000/uL (130-400); RED BLOOD CELL COUNT 5.29 mill/uL (4.2-5.4); RED CELL DISTRIBUTION WIDTH 14.9 % (11.6-14.6)
[2024-11-13 07:35] LABS: CREATININE 3.2 mg/dL (0.6-1.0)
[2024-11-13 07:36] LABS: TRIGLYCERIDE 110.0 mg/dL (0-150); UREA NITROGEN BLOOD 91.0 mg/dL (9-23)
[2024-11-13] MEDS: FAMOTIDINE 20MG TABLET PO SCH (08:19)
[2024-11-13 09:32] LABS: BG BASE EXCESS -0.1 mmol/L (-2.0-3.0); BG CARBOXYHEMOGLOBIN 0.5 % (0.5-1.5); BG DEOXYHEMOGLOBIN 4.0 % (0.0-5.0); BG FRACTION INSPIRED OXYGEN 50; BG HCO3 ACT 24.6 mmol/L (21.0-28.0); BG METHEMOGLOBIN 0.3 % (0.5-1.5); BG OXYGEN SATURATION 96.0 % (94.0-98.0); BG OXYHEMOGLOBIN 95.2 % (94.0-98.0); BG PCO2 40.3 mmHg (32.0-45.0); BG PEEP (cmH2O) 12.0 cmH2O; BG PH 7.403 (7.350-7.450); BG PO2 79.9 mmHg (83.0-108.0); BG SAMPLE SITE LEFT RADIAL; BG TIDAL VOLUME(mL) 500.0 mL; BG TOTAL HEMOGLOBIN 15.1 g/dL (12.0-16.0); BG TOTAL RESPIRATORY RATE 20 b/min; BG VENT MODE VENT-PRVC; BG VENT RATE 20.0 set
[2024-11-13 09:48] LABS: BAND% 15.0 % (1.0-6.0); LYMPHOCYTES % MANUAL 6.0 % (20.0-60.0); METAMYELOCYTES % 1.0 % (0-0); MONOCYTES % MANUAL 9.0 % (2.0-8.0); NEUTROPHILS % MANUAL 69.0 % (45.0-75.0)
[2024-11-13 09:51] LABS: PLATELET ESTIMATE NORMAL
[2024-11-13] MEDS: METHYLPREDNISOLONE SOD SUCC 125MG/2ML (ACT-O-VIAL) IV SCH (13:04)
[2024-11-14] VITALS (87 sets, daily range): BP systolic 109–156; BP diastolic 62–106; PULSE 53–79; RESP 10–35; TEMP 36.4–36.8; O2SAT 61–100
[2024-11-14 06:45] LABS: HEMATOCRIT. 41.1 % (36.0-48.0); HEMOGLOBIN. 13.1 g/dL (12.0-16.0); MEAN PLATELET VOLUME 8.1 fl (7.4-10.4); PLATELET 215 x1000/uL (130-400); RED BLOOD CELL COUNT 4.97 mill/uL (4.2-5.4); RED CELL DISTRIBUTION WIDTH 14.9 % (11.6-14.6)
[2024-11-14 07:03] LABS: CREATININE 2.8 mg/dL (0.6-1.0); UREA NITROGEN BLOOD 85.0 mg/dL (9-23)
[2024-11-14 08:42] LABS: BG BASE EXCESS 2.7 mmol/L (-2.0-3.0); BG CARBOXYHEMOGLOBIN 1.3 % (0.5-1.5); BG DEOXYHEMOGLOBIN 4.8 % (0.0-5.0); BG FRACTION INSPIRED OXYGEN 40; BG HCO3 ACT 27.9 mmol/L (21.0-28.0); BG METHEMOGLOBIN 0.1 % (0.5-1.5); BG OXYGEN SATURATION 95.1 % (94.0-98.0); BG OXYHEMOGLOBIN 93.8 % (94.0-98.0); BG PCO2 45.0 mmHg (32.0-45.0); BG PEEP (cmH2O) 8.0 cmH2O; BG PH 7.410 (7.350-7.450); BG PO2 76.2 mmHg (83.0-108.0); BG SAMPLE SITE LEFT RADIAL; BG TIDAL VOLUME(mL) 500.0 mL; BG TOTAL HEMOGLOBIN 14.2 g/dL (12.0-16.0); BG TOTAL RESPIRATORY RATE 17 b/min; BG VENT MODE VENT - AC; BG VENT RATE 16.0 set
[2024-11-14] MEDS: IPRATROPIUM/ALBUTEROL 0.5-3(2.5)MG/3ML NEB HHN PRN (08:45)
[2024-11-14 09:37] LABS: LYMPHOCYTES % MANUAL 5.0 % (20.0-60.0); MONOCYTES % MANUAL 11.0 % (2.0-8.0); NEUTROPHILS % MANUAL 84.0 % (45.0-75.0); PLATELET ESTIMATE NORMAL
[2024-11-15] VITALS (83 sets, daily range): BP systolic 100–150; BP diastolic 63–92; PULSE 50–78; RESP 0–31; TEMP 36.61404–37; O2SAT 86–100
[2024-11-15 06:14] LABS: HEMATOCRIT. 24.2 % (36.0-48.0); HEMOGLOBIN. 7.5 g/dL (12.0-16.0); MEAN PLATELET VOLUME 8.2 fl (7.4-10.4); PLATELET 111 x1000/uL (130-400); RED BLOOD CELL COUNT 2.81 mill/uL (4.2-5.4); RED CELL DISTRIBUTION WIDTH 14.9 % (11.6-14.6)
[2024-11-15 06:27] LABS: CREATININE 2.5 mg/dL (0.6-1.0)
[2024-11-15 06:28] LABS: UREA NITROGEN BLOOD 77 mg/dL (9-23)
[2024-11-15 06:30] LABS: PHOSPHORUS 5.0 mg/dL (2.5-4.9)
[2024-11-15 10:48] LABS: BAND% 5.0 % (1.0-6.0); LYMPHOCYTES % MANUAL 7.0 % (20.0-60.0); MONOCYTES % MANUAL 2.0 % (2.0-8.0); NEUTROPHILS % MANUAL 86.0 % (45.0-75.0); PLATELET ESTIMATE SLIGHTLY DECREASED
[2024-11-15] MEDS: PROPOFOL 10MG/ML 100ML 100 ML IV PRN (13:06)
[2024-11-15 21:27] LABS: INR 1.2
[2024-11-16] VITALS (78 sets, daily range): BP systolic 75–169; BP diastolic 35–148; PULSE 49–97; RESP 12–32; TEMP 35.8–37.2; O2SAT 80–100
[2024-11-16 06:17] LABS: PLATELET 185 x1000/uL (130-400); RED BLOOD CELL COUNT 5.10 mill/uL (4.2-5.4); RED CELL DISTRIBUTION WIDTH 14.8 % (11.6-14.6)
[2024-11-16 06:19] LABS: INR 1.2
[2024-11-16 06:36] LABS: CREATININE 1.9 mg/dL (0.6-1.0); UREA NITROGEN BLOOD 69 mg/dL (9-23)
[2024-11-16 06:38] LABS: PHOSPHORUS 4.4 mg/dL (2.5-4.9)
[2024-11-16] MEDS ORDERED: LIDOCAINE HCL/EPINEPHRINE 1%-EPI 1:100,000 20ML VIAL ONE (07:21)
[2024-11-16] MEDS ORDERED: ROCURONIUM BROMIDE 10MG/ML VIAL 5ML IV ONE (07:21)
[2024-11-16] MEDS ORDERED: EPHEDRINE SULFATE 50MG/ML VIAL ONE (07:21)
[2024-11-16] MEDS ORDERED: PHENYLEPHRINE HCL 10MG/ML 1ML IV ONE (07:21)
[2024-11-16] MEDS ORDERED: FENTANYL CITRATE/PF 50MCG/ML 2ML VIAL ONE (08:16)
[2024-11-16] MEDS ORDERED: LIDOCAINE HCL 1% 10 MG/ML 10ML VIAL ONE (09:03)
[2024-11-16] MEDS: LORAZEPAM 2MG/ML UD SYRINGE IV PRN (23:41)
[2024-11-17] VITALS (27 sets, daily range): BP systolic 110–160; BP diastolic 72–115; PULSE 77–132; RESP 16–35; TEMP 36.8–37.4; O2SAT 94–100
[2024-11-17 06:18] LABS: PLATELET 96 x1000/uL (130-400); RED BLOOD CELL COUNT 4.86 mill/uL (4.2-5.4); RED CELL DISTRIBUTION WIDTH 14.9 % (11.6-14.6)
[2024-11-17 06:31] LABS: CREATININE 1.7 mg/dL (0.6-1.0)
[2024-11-17 06:32] LABS: UREA NITROGEN BLOOD 65 mg/dL (9-23)
[2024-11-17 06:34] LABS: PHOSPHORUS 3.0 mg/dL (2.5-4.9)
[2024-11-17] MEDS: FUROSEMIDE 40MG/4ML VIAL IVP SCH (09:06)
[2024-11-17] MEDS: METHYLPREDNISOLONE SOD SUCC 40MG/ML (ACT-O-VIAL) IV SCH (14:32)
[2024-11-17] MEDS ORDERED: SODIUM CHLORIDE 0.9% 500 ML IV SCH (14:45)
[2024-11-17] MEDS: SODIUM CHLORIDE 0.9% 500 ML IV SCH (14:55)
[2024-11-17] MEDS: MORPHINE SULFATE 4 MG/ML INJ (FOR IV/IM USE) IV SCH (16:37)
[2024-11-17 19:05] LABS: SODIUM URINE RANDOM 106 mEq/L
[2024-11-17 19:16] LABS: OSMOLALITY URINE 403 mOsm/kg (500-850)
[2024-11-18] VITALS (23 sets, daily range): BP systolic 107–165; BP diastolic 61–113; PULSE 92–128; RESP 16–29; TEMP 37.1–37.8; O2SAT 0–99
[2024-11-18 06:49] LABS: BASOPHILS % 0.2 % (0.0-2.0); EOSINOPHILS % 0.4 % (0.0-5.0); HEMATOCRIT. 41.6 % (36.0-48.0); HEMOGLOBIN. 13.1 g/dL (12.0-16.0); LYMPHOCYTES % 8.0 % (20.0-50.0); MONOCYTES % 7.6 % (2.0-8.0); NEUTROPHILS % 83.8 % (40.0-76.0); RED BLOOD CELL COUNT 4.86 mill/uL (4.2-5.4); RED CELL DISTRIBUTION WIDTH 14.9 % (11.6-14.6)
[2024-11-18 07:14] LABS: PLATELET 145 x1000/uL (130-400)
[2024-11-18 08:03] LABS: CREATININE 1.3 mg/dL (0.6-1.0); UREA NITROGEN BLOOD 74 mg/dL (9-23)
[2024-11-18 08:05] LABS: PHOSPHORUS 2.6 mg/dL (2.5-4.9)
[2024-11-18 08:55] LABS: BG BASE EXCESS 7.2 mmol/L (-2.0-3.0); BG CARBOXYHEMOGLOBIN 1.6 % (0.5-1.5); BG DEOXYHEMOGLOBIN 5.6 % (0.0-5.0); BG FRACTION INSPIRED OXYGEN 40; BG HCO3 ACT 31.8 mmol/L (21.0-28.0); BG METHEMOGLOBIN 0.3 % (0.5-1.5); BG OXYGEN SATURATION 94.3 % (94.0-98.0); BG OXYHEMOGLOBIN 92.5 % (94.0-98.0); BG PCO2 44.5 mmHg (32.0-45.0); BG PEEP (cmH2O) 8.0 cmH2O; BG PH 7.472 (7.350-7.450); BG PO2 64.5 mmHg (83.0-108.0); BG SAMPLE SITE LEFT RADIAL; BG TIDAL VOLUME(mL) 500.0 mL; BG TOTAL HEMOGLOBIN 14.0 g/dL (12.0-16.0); BG VENT MODE VENT - AC; BG VENT RATE 16.0 set
[2024-11-18] MEDS: METHYLPREDNISOLONE SOD SUCC 40MG/ML (ACT-O-VIAL) IV SCH (09:24)
[2024-11-18] MEDS: DILTIAZEM HCL 30MG TABLET PO SCH (10:14)
[2024-11-18] MEDS ORDERED: AMIODARONE HCL 900 MG in DEXT 5% WATER 482 ML IV SCH (12:00)
[2024-11-18] MEDS ORDERED: AMIODARONE HCL 150 MG in DEXT 5% WATER 100 ML IV ONE (12:00)
[2024-11-18] MEDS: AMIODARONE 150MG/100ML PREMIX IV SCH (13:47)
[2024-11-18] MEDS: AMIODARONE 360MG/200ML D5W PREMIX IV SCH (15:11)
[2024-11-19] VITALS (24 sets, daily range): BP systolic 112–166; BP diastolic 77–99; PULSE 87–115; RESP 17–32; TEMP 36.7–37.7; O2SAT 96–100
[2024-11-19 06:30] LABS: HEMATOCRIT. 37.5 % (36.0-48.0); HEMOGLOBIN. 11.6 g/dL (12.0-16.0); MEAN PLATELET VOLUME 8.4 fl (7.4-10.4); PLATELET 143 x1000/uL (130-400); RED BLOOD CELL COUNT 4.45 mill/uL (4.2-5.4); RED CELL DISTRIBUTION WIDTH 15.1 % (11.6-14.6)
[2024-11-19 06:46] LABS: CREATININE 1.3 mg/dL (0.6-1.0); UREA NITROGEN BLOOD 69 mg/dL (9-23)
[2024-11-19 06:48] LABS: ASPARTATE AMINOTRANSFERASE 19 IU/L (<34); BILIRUBIN TOTAL 0.4 mg/dL (0.1-1.0)
[2024-11-19 06:49] LABS: PROTEIN TOTAL 5.8 g/dL (6.0-8.3)
[2024-11-19] MEDS: SODIUM CHLORIDE 0.45% 1,000 ML IV SCH (10:44)
[2024-11-19 11:23] LABS: BAND% 4.0 % (1.0-6.0); LYMPHOCYTES % MANUAL 2.0 % (20.0-60.0); MONOCYTES % MANUAL 4.0 % (2.0-8.0); NEUTROPHILS % MANUAL 90.0 % (45.0-75.0); PLATELET ESTIMATE NORMAL
[2024-11-19] MEDS: ENOXAPARIN 120MG/0.8ML SYR SUBCUT SCH (14:06)
[2024-11-19] MEDS: DILTIAZEM HCL 30MG TABLET PO SCH (14:32)
[2024-11-19] MEDS: AMIODARONE 200MG TABLET PO SCH (22:48)
[2024-11-20] VITALS (20 sets, daily range): BP systolic 129–174; BP diastolic 70–96; PULSE 83–135; RESP 19–39; TEMP 37.2–38.7; O2SAT 88–99
[2024-11-20 07:23] LABS: HEMATOCRIT. 36.9 % (36.0-48.0); HEMOGLOBIN. 11.6 g/dL (12.0-16.0); MEAN PLATELET VOLUME 8.9 fl (7.4-10.4); PLATELET 129 x1000/uL (130-400); RED BLOOD CELL COUNT 4.36 mill/uL (4.2-5.4); RED CELL DISTRIBUTION WIDTH 15.5 % (11.6-14.6)
[2024-11-20 07:54] LABS: CREATININE 1.2 mg/dL (0.6-1.0); UREA NITROGEN BLOOD 56 mg/dL (9-23)
[2024-11-20 07:55] LABS: ASPARTATE AMINOTRANSFERASE 19 IU/L (<34)
[2024-11-20 07:56] LABS: BILIRUBIN DIRECT 0.3 mg/dL (<=3.0)
[2024-11-20 07:57] LABS: BILIRUBIN TOTAL 0.8 mg/dL (0.1-1.0); PHOSPHORUS 1.2 mg/dL (2.5-4.9); PROTEIN TOTAL 5.7 g/dL (6.0-8.3)
[2024-11-20] MEDS: METHYLPREDNISOLONE SOD SUCC 40MG/ML (ACT-O-VIAL) IV SCH (08:46)
[2024-11-20] MEDS: AMIODARONE 200MG TABLET NG SCH (08:47)
[2024-11-20 10:35] LABS: LYMPHOCYTES % MANUAL 6.0 % (20.0-60.0); MONOCYTES % MANUAL 3.0 % (2.0-8.0); NEUTROPHILS % MANUAL 91.0 % (45.0-75.0); PLATELET ESTIMATE NORMAL
[2024-11-20] MEDS: MAGNESIUM 2 G PREMIX 50 ML IV SCH (14:34)
[2024-11-20] MEDS: DILTIAZEM HCL 60MG TABLET NG SCH (14:36)
[2024-11-20] MEDS: ACETAMINOPHEN 650MG/20.3ML UDC NG PRN (16:30)
[2024-11-20] MEDS: DESMOPRESSIN ACETATE 4MCG/ML AMP IV SCH (22:00)
[2024-11-20] MEDS: CLONIDINE 0.1MG TABLET PO PRN (23:10)
[2024-11-20] MEDS: VANCOMYCIN 1.5GM/250ML 250 ML IV NR (23:25)
[2024-11-21] VITALS (37 sets, daily range): BP systolic 95–170; BP diastolic 66–123; PULSE 74–108; RESP 17–40; TEMP 36.4–37.9; O2SAT 84–100
[2024-11-21] MEDS: CLONIDINE 0.1MG TABLET PO NR (01:00)
[2024-11-21 06:01] LABS: CREATININE 1.3 mg/dL (0.6-1.0)
[2024-11-21 06:02] LABS: UREA NITROGEN BLOOD 50 mg/dL (9-23)
[2024-11-21 06:04] LABS: PHOSPHORUS 1.9 mg/dL (2.5-4.9)
[2024-11-21 06:12] LABS: HEMATOCRIT. 35.2 % (36.0-48.0); HEMOGLOBIN. 10.9 g/dL (12.0-16.0); MEAN PLATELET VOLUME 9.1 fl (7.4-10.4); PLATELET 100 x1000/uL (130-400); RED BLOOD CELL COUNT 4.12 mill/uL (4.2-5.4); RED CELL DISTRIBUTION WIDTH 15.4 % (11.6-14.6)
[2024-11-21] MEDS: LORAZEPAM 2MG/ML UD SYRINGE IV PRN ×2 (10:45→12:54)
[2024-11-21 12:22] LABS: BG BASE EXCESS 6.2 mmol/L (-2.0-3.0); BG CARBOXYHEMOGLOBIN 1.1 % (0.5-1.5); BG DEOXYHEMOGLOBIN 4.8 % (0.0-5.0); BG FRACTION INSPIRED OXYGEN 50; BG HCO3 ACT 30.5 mmol/L (21.0-28.0); BG METHEMOGLOBIN 0.0 % (0.5-1.5); BG OXYGEN SATURATION 95.1 % (94.0-98.0); BG OXYHEMOGLOBIN 94.1 % (94.0-98.0); BG PCO2 42.8 mmHg (32.0-45.0); BG PEEP (cmH2O) 5.0 cmH2O; BG PH 7.471 (7.350-7.450); BG PO2 71.8 mmHg (83.0-108.0); BG SAMPLE SITE RIGHT RADIAL; BG TIDAL VOLUME(mL) 500.0 mL; BG TOTAL HEMOGLOBIN 12.5 g/dL (12.0-16.0); BG VENT MODE VENT - AC; BG VENT RATE 16.0 set
[2024-11-21] MEDS ORDERED: NALOXONE HCL 0.4MG/ML VIAL IV PRN (12:30)
[2024-11-21] MEDS: MORPHINE SULFATE 4 MG/ML INJ (FOR IV/IM USE) IV PRN (12:34)
[2024-11-21] MEDS: POTASSIUM PHOSPHATE 20 MMOL in DEXT 5% WATER 243.3333 ML IV NR (13:52)
[2024-11-21] MEDS: QUETIAPINE FUMARATE 25MG TABLET PO SCH (13:56)
[2024-11-21 14:14] LABS: BAND% 7.0 % (1.0-6.0); LYMPHOCYTES % MANUAL 9.0 % (20.0-60.0); MONOCYTES % MANUAL 4.0 % (2.0-8.0); NEUTROPHILS % MANUAL 80.0 % (45.0-75.0); PLATELET ESTIMATE DECREASED
[2024-11-21] MEDS: VANCOMYCIN 750MG PREMIX 150 ML IV SCH (17:30)
[2024-11-21 17:39] LABS: HEMATOCRIT. 35.9 % (36.0-48.0); HEMOGLOBIN. 11.3 g/dL (12.0-16.0); MEAN PLATELET VOLUME 9.5 fl (7.4-10.4); PLATELET 95 x1000/uL (130-400); RED BLOOD CELL COUNT 4.17 mill/uL (4.2-5.4); RED CELL DISTRIBUTION WIDTH 15.7 % (11.6-14.6)
[2024-11-21 17:55] LABS: INR 1.5
[2024-11-21 18:00] LABS: LYMPHOCYTES % MANUAL 3.0 % (20.0-60.0); MONOCYTES % MANUAL 3.0 % (2.0-8.0); NEUTROPHILS % MANUAL 94.0 % (45.0-75.0)
[2024-11-21 18:01] LABS: PLATELET ESTIMATE SLIGHTLY DECREASED
[2024-11-21] MEDS: PROPOFOL 10MG/ML 100ML 100 ML IV PRN (19:49)
[2024-11-21] MEDS ORDERED: FENTANYL 2500MCG/250ML PMX 250 ML IV PRN (20:00)
[2024-11-21] MEDS: FENTANYL CITRATE 2,500 MCG in SODIUM CHLORIDE 0.9% 200 ML IV PRN (20:40)
[2024-11-21] MEDS: DESMOPRESSIN ACETATE 4MCG/ML AMP IV SCH (22:06)
[2024-11-22] VITALS (81 sets, daily range): BP systolic 78–154; BP diastolic 56–96; PULSE 59–107; RESP 13–30; TEMP 36.4–37.2; O2SAT 85–100
[2024-11-22 05:48] LABS: HEMATOCRIT. 34.6 % (36.0-48.0); HEMOGLOBIN. 10.9 g/dL (12.0-16.0); MEAN PLATELET VOLUME 9.2 fl (7.4-10.4); PLATELET 92 x1000/uL (130-400); RED BLOOD CELL COUNT 4.00 mill/uL (4.2-5.4); RED CELL DISTRIBUTION WIDTH 15.8 % (11.6-14.6)
[2024-11-22 06:11] LABS: CREATININE 1.2 mg/dL (0.6-1.0); TRIGLYCERIDE 111 mg/dL (0-150); UREA NITROGEN BLOOD 40 mg/dL (9-23)
[2024-11-22 06:13] LABS: PHOSPHORUS 2.0 mg/dL (2.5-4.9)
[2024-11-22 09:10] LABS: BG BASE EXCESS 5.4 mmol/L (-2.0-3.0); BG CARBOXYHEMOGLOBIN 0.6 % (0.5-1.5); BG DEOXYHEMOGLOBIN 3.5 % (0.0-5.0); BG FRACTION INSPIRED OXYGEN 100; BG HCO3 ACT 29.3 mmol/L (21.0-28.0); BG METHEMOGLOBIN 0.3 % (0.5-1.5); BG OXYGEN SATURATION 96.5 % (94.0-98.0); BG OXYHEMOGLOBIN 95.6 % (94.0-98.0); BG PCO2 40.1 mmHg (32.0-45.0); BG PEEP (cmH2O) 5.0 cmH2O; BG PH 7.481 (7.350-7.450); BG PO2 79.9 mmHg (83.0-108.0); BG SAMPLE SITE RIGHT RADIAL; BG TIDAL VOLUME(mL) 450.0 mL; BG TOTAL HEMOGLOBIN 12.3 g/dL (12.0-16.0); BG TOTAL RESPIRATORY RATE 20 b/min; BG VENT MODE VENT-PRVC; BG VENT RATE 16.0 set
[2024-11-22 10:03] LABS: BAND% 14.0 % (1.0-6.0); LYMPHOCYTES % MANUAL 8.0 % (20.0-60.0); MONOCYTES % MANUAL 2.0 % (2.0-8.0); NEUTROPHILS % MANUAL 76.0 % (45.0-75.0)
[2024-11-22 10:05] LABS: PLATELET ESTIMATE DECREASED
[2024-11-22] MEDS: POTASSIUM PHOSPHATE 15 MMOL in DEXT 5% WATER 245 ML IV NR (10:47)
[2024-11-22] MEDS: MAGNESIUM 1 G PREMIX 100 ML IV NR (11:32)
[2024-11-22] MEDS: POLYETHYLENE GLYCOL 3350 (17GM) 1 DOSE PACK NG SCH (18:44)
[2024-11-22] MEDS: VANCOMYCIN 1.5GM/250ML 250 ML IV SCH (18:45)
[2024-11-22] MEDS: INSULIN GLARGINE 100 UNITS/ML SUBCUT SCH (23:50)
[2024-11-23] VITALS (85 sets, daily range): BP systolic 86–144; BP diastolic 49–123; PULSE 62–93; RESP 16–35; TEMP 36.5–36.8; O2SAT 92–100
[2024-11-23] MEDS: PROPOFOL 10MG/ML 100ML 100 ML IV PRN (03:00)
[2024-11-23 04:14] LABS: BASOPHILS % 0.5 % (0.0-2.0); EOSINOPHILS % 0.1 % (0.0-5.0); HEMATOCRIT. 36.4 % (36.0-48.0); HEMOGLOBIN. 11.5 g/dL (12.0-16.0); LYMPHOCYTES % 7.5 % (20.0-50.0); MEAN PLATELET VOLUME 10.4 fl (7.4-10.4); MONOCYTES % 5.3 % (2.0-8.0); NEUTROPHILS % 86.6 % (40.0-76.0); PLATELET 90 x1000/uL (130-400); RED BLOOD CELL COUNT 4.26 mill/uL (4.2-5.4); RED CELL DISTRIBUTION WIDTH 15.8 % (11.6-14.6)
[2024-11-23] MEDS: POLYETHYLENE GLYCOL 3350 (17GM) 1 DOSE PACK PO SCH (08:11)
[2024-11-23 08:23] LABS: BG BASE EXCESS 2.8 mmol/L (-2.0-3.0); BG CARBOXYHEMOGLOBIN 0.9 % (0.5-1.5); BG DEOXYHEMOGLOBIN 2.8 % (0.0-5.0); BG FRACTION INSPIRED OXYGEN 100; BG HCO3 ACT 27.6 mmol/L (21.0-28.0); BG METHEMOGLOBIN 0.0 % (0.5-1.5); BG OXYGEN SATURATION 97.2 % (94.0-98.0); BG OXYHEMOGLOBIN 96.3 % (94.0-98.0); BG PCO2 42.8 mmHg (32.0-45.0); BG PEEP (cmH2O) 5.0 cmH2O; BG PH 7.427 (7.350-7.450); BG PO2 88.8 mmHg (83.0-108.0); BG SAMPLE SITE RIGHT RADIAL; BG TIDAL VOLUME(mL) 450.0 mL; BG TOTAL HEMOGLOBIN 13.6 g/dL (12.0-16.0); BG VENT MODE VENT - PRVC; BG VENT RATE 16.0 set
[2024-11-23 09:15] LABS: CREATININE 1.3 mg/dL (0.6-1.0)
[2024-11-23 09:16] LABS: TRIGLYCERIDE 838.0 mg/dL (0-150); UREA NITROGEN BLOOD 43.0 mg/dL (9-23)
[2024-11-23] MEDS: PHYTONADIONE 10MG/ML INJ SUBCUT SCH (14:35)
[2024-11-24] VITALS (101 sets, daily range): BP systolic 80–158; BP diastolic 58–117; PULSE 53–84; RESP 16–36; TEMP 36.3–36.7; O2SAT 88–100
[2024-11-24] MEDS: PROPOFOL 10MG/ML 100ML 100 ML IV PRN ×2 (01:46→10:14)
[2024-11-24 05:44] LABS: BASOPHILS % 0.3 % (0.0-2.0); EOSINOPHILS % 0.7 % (0.0-5.0); HEMATOCRIT. 33.9 % (36.0-48.0); HEMOGLOBIN. 10.7 g/dL (12.0-16.0); LYMPHOCYTES % 11.3 % (20.0-50.0); MEAN PLATELET VOLUME 9.7 fl (7.4-10.4); MONOCYTES % 4.5 % (2.0-8.0); NEUTROPHILS % 83.2 % (40.0-76.0); PLATELET 74 x1000/uL (130-400); RED BLOOD CELL COUNT 3.98 mill/uL (4.2-5.4); RED CELL DISTRIBUTION WIDTH 15.3 % (11.6-14.6)
[2024-11-24 06:26] LABS: CREATININE 1.0 mg/dL (0.6-1.0); TRIGLYCERIDE 118 mg/dL (0-150); UREA NITROGEN BLOOD 36 mg/dL (9-23)
[2024-11-24 07:00] LABS: INR 1.3
[2024-11-24] MEDS ORDERED: FISH OIL/OMEGA-3 FATTY ACIDS 1000MG CAPSULE PO SCH (09:00)
[2024-11-24 09:12] LABS: BG BASE EXCESS 4.2 mmol/L (-2.0-3.0); BG CARBOXYHEMOGLOBIN 0.3 % (0.5-1.5); BG DEOXYHEMOGLOBIN 3.2 % (0.0-5.0); BG FRACTION INSPIRED OXYGEN 80; BG HCO3 ACT 29.5 mmol/L (21.0-28.0); BG METHEMOGLOBIN 0.3 % (0.5-1.5); BG OXYGEN SATURATION 96.8 % (94.0-98.0); BG OXYHEMOGLOBIN 96.2 % (94.0-98.0); BG PCO2 46.9 mmHg (32.0-45.0); BG PEEP (cmH2O) 5.0 cmH2O; BG PH 7.416 (7.350-7.450); BG PO2 84.9 mmHg (83.0-108.0); BG SAMPLE SITE RIGHT RADIAL; BG TIDAL VOLUME(mL) 450.0 mL; BG TOTAL HEMOGLOBIN 11.8 g/dL (12.0-16.0); BG VENT MODE VENT - AC/PRVC; BG VENT RATE 16.0 set
[2024-11-24] MEDS: DILTIAZEM HCL 30MG TABLET NG SCH (12:40)
[2024-11-24] MEDS: VANCOMYCIN 1G PREMIX 200 ML IV SCH (12:43)
[2024-11-25] VITALS (106 sets, daily range): BP systolic 90–165; BP diastolic 60–115; PULSE 58–87; RESP 15–26; TEMP 35–36.8; O2SAT 89–100
[2024-11-25 05:27] LABS: HEMATOCRIT. 36.7 % (36.0-48.0); HEMOGLOBIN. 11.3 g/dL (12.0-16.0); MEAN PLATELET VOLUME 10.0 fl (7.4-10.4); PLATELET 75 x1000/uL (130-400); RED BLOOD CELL COUNT 4.27 mill/uL (4.2-5.4); RED CELL DISTRIBUTION WIDTH 15.4 % (11.6-14.6)
[2024-11-25 06:00] LABS: CREATININE 0.9 mg/dL (0.6-1.0); TRIGLYCERIDE 126 mg/dL (0-150); UREA NITROGEN BLOOD 31 mg/dL (9-23)
[2024-11-25 06:02] LABS: ASPARTATE AMINOTRANSFERASE 12 IU/L (<34); BILIRUBIN DIRECT 0.2 mg/dL (<=3.0); BILIRUBIN TOTAL 0.3 mg/dL (0.1-1.0); PROTEIN TOTAL 5.7 g/dL (6.0-8.3)
[2024-11-25 07:29] LABS: BAND% 7.0 % (1.0-6.0); EOSINOPHILS % MANUAL 1.0 % (0.0-5.0); LYMPHOCYTES % MANUAL 10.0 % (20.0-60.0); MONOCYTES % MANUAL 6.0 % (2.0-8.0); NEUTROPHILS % MANUAL 76.0 % (45.0-75.0); PLATELET ESTIMATE DECREASED
[2024-11-25 08:44] LABS: BG BASE EXCESS 7.2 mmol/L (-2.0-3.0); BG CARBOXYHEMOGLOBIN 0.6 % (0.5-1.5); BG DEOXYHEMOGLOBIN 6.9 % (0.0-5.0); BG FRACTION INSPIRED OXYGEN 40; BG HCO3 ACT 31.8 mmol/L (21.0-28.0); BG METHEMOGLOBIN 0.1 % (0.5-1.5); BG OXYGEN SATURATION 93.1 % (94.0-98.0); BG OXYHEMOGLOBIN 92.4 % (94.0-98.0); BG PCO2 45.3 mmHg (32.0-45.0); BG PEEP (cmH2O) 5.0 cmH2O; BG PH 7.464 (7.350-7.450); BG PO2 65.7 mmHg (83.0-108.0); BG SAMPLE SITE RIGHT RADIAL; BG TIDAL VOLUME(mL) 450.0 mL; BG TOTAL HEMOGLOBIN 11.3 g/dL (12.0-16.0); BG VENT MODE VENT - PRVC; BG VENT RATE 16.0 set
[2024-11-25] MEDS: AZTREONAM 2 GM in DEXT 5% WATER 100 ML IV SCH (14:45)
[2024-11-25] MEDS: PROPOFOL 10MG/ML 100ML 100 ML IV PRN (18:43)
[2024-11-25] MEDS: INSULIN GLARGINE 100 UNITS/ML SUBCUT SCH (21:50)
[2024-11-26] VITALS (104 sets, daily range): BP systolic 91–167; BP diastolic 43–123; PULSE 55–89; RESP 16–25; TEMP 36.8–36.9; O2SAT 73–100
[2024-11-26 05:42] LABS: BASOPHILS % 0.2 % (0.0-2.0); EOSINOPHILS % 0.9 % (0.0-5.0); HEMATOCRIT. 34.8 % (36.0-48.0); HEMOGLOBIN. 11.0 g/dL (12.0-16.0); LYMPHOCYTES % 15.5 % (20.0-50.0); MEAN PLATELET VOLUME 9.9 fl (7.4-10.4); MONOCYTES % 6.4 % (2.0-8.0); NEUTROPHILS % 77.0 % (40.0-76.0); PLATELET 76 x1000/uL (130-400); RED BLOOD CELL COUNT 4.10 mill/uL (4.2-5.4); RED CELL DISTRIBUTION WIDTH 15.5 % (11.6-14.6)
[2024-11-26 05:45] LABS: INR 1.2
[2024-11-26 06:00] LABS: CREATININE 0.8 mg/dL (0.6-1.0); TRIGLYCERIDE 101 mg/dL (0-150); UREA NITROGEN BLOOD 27 mg/dL (9-23)
[2024-11-26 09:28] LABS: BG BASE EXCESS 7.0 mmol/L (-2.0-3.0); BG CARBOXYHEMOGLOBIN 0.5 % (0.5-1.5); BG DEOXYHEMOGLOBIN 5.4 % (0.0-5.0); BG FRACTION INSPIRED OXYGEN 40; BG HCO3 ACT 31.8 mmol/L (21.0-28.0); BG METHEMOGLOBIN 0.3 % (0.5-1.5); BG OXYGEN SATURATION 94.6 % (94.0-98.0); BG OXYHEMOGLOBIN 93.8 % (94.0-98.0); BG PCO2 45.6 mmHg (32.0-45.0); BG PEEP (cmH2O) 5.0 cmH2O; BG PH 7.461 (7.350-7.450); BG PO2 70.9 mmHg (83.0-108.0); BG SAMPLE SITE RIGHT RADIAL; BG TIDAL VOLUME(mL) 450.0 mL; BG TOTAL HEMOGLOBIN 12.5 g/dL (12.0-16.0); BG VENT MODE PRVC-AC; BG VENT RATE 16.0 set
[2024-11-26] MEDS ORDERED: PROPOFOL 200MG/20ML VIAL IV ONE (14:12)
[2024-11-26] MEDS ORDERED: PHENYLEPHRINE HCL 10MG/ML 1ML IV ONE (14:12)
[2024-11-26] MEDS ORDERED: EPHEDRINE SULFATE 50MG/ML VIAL ONE (14:12)
[2024-11-26] MEDS ORDERED: CEFAZOLIN SODIUM 1000MG/VIAL ONE (14:38)
[2024-11-26] MEDS ORDERED: ROCURONIUM BROMIDE 10MG/ML VIAL 5ML IV ONE (16:04)
[2024-11-26] MEDS: PROPOFOL 10MG/ML 100ML 100 ML IV PRN (20:11)
[2024-11-27] VITALS (80 sets, daily range): BP systolic 94–176; BP diastolic 55–129; PULSE 70–98; RESP 13–26; TEMP 36–36.8; O2SAT 94–100
[2024-11-27 05:54] LABS: BASOPHILS % 0.2 % (0.0-2.0); EOSINOPHILS % 1.8 % (0.0-5.0); HEMATOCRIT. 37.6 % (36.0-48.0); HEMOGLOBIN. 11.8 g/dL (12.0-16.0); LYMPHOCYTES % 19.8 % (20.0-50.0); MEAN PLATELET VOLUME 10.5 fl (7.4-10.4); MONOCYTES % 6.0 % (2.0-8.0); NEUTROPHILS % 72.2 % (40.0-76.0); PLATELET 100 x1000/uL (130-400); RED BLOOD CELL COUNT 4.50 mill/uL (4.2-5.4); RED CELL DISTRIBUTION WIDTH 15.3 % (11.6-14.6)
[2024-11-27] MEDS ORDERED: METOCLOPRAMIDE HCL 5MG TABLET PO SCH (06:00)
[2024-11-27 06:12] LABS: CREATININE 0.8 mg/dL (0.6-1.0)
[2024-11-27 06:13] LABS: UREA NITROGEN BLOOD 22 mg/dL (9-23)
[2024-11-27] MEDS ORDERED: NALOXONE HCL 0.4MG/ML VIAL IV PRN (09:00)
[2024-11-27] MEDS: QUETIAPINE FUMARATE 50MG TABLET PO SCH (09:15)
[2024-11-27] MEDS: METHYLPREDNISOLONE SOD SUCC 40MG/ML (ACT-O-VIAL) IV SCH (09:16)
[2024-11-27] MEDS: LORAZEPAM 2MG/ML UD SYRINGE IV PRN (09:38)
[2024-11-27 09:53] LABS: BG BASE EXCESS 7.9 mmol/L (-2.0-3.0); BG CARBOXYHEMOGLOBIN 1.6 % (0.5-1.5); BG DEOXYHEMOGLOBIN 3.2 % (0.0-5.0); BG FRACTION INSPIRED OXYGEN 40; BG HCO3 ACT 32.4 mmol/L (21.0-28.0); BG METHEMOGLOBIN 0.3 % (0.5-1.5); BG OXYGEN SATURATION 96.7 % (94.0-98.0); BG OXYHEMOGLOBIN 94.9 % (94.0-98.0); BG PCO2 44.6 mmHg (32.0-45.0); BG PEEP (cmH2O) 5.0 cmH2O; BG PH 7.479 (7.350-7.450); BG PO2 81.6 mmHg (83.0-108.0); BG SAMPLE SITE RIGHT RADIAL; BG TIDAL VOLUME(mL) 450.0 mL; BG TOTAL HEMOGLOBIN 12.9 g/dL (12.0-16.0); BG TOTAL RESPIRATORY RATE 23 b/min; BG VENT MODE VENT-PRVC; BG VENT RATE 16.0 set
[2024-11-27] MEDS: METOCLOPRAMIDE HCL 10MG/2ML VIAL IV SCH (12:00)
[2024-11-27] MEDS: VANCOMYCIN 1.25GM/250ML 250 ML IV SCH (17:36)
[2024-11-28] VITALS (21 sets, daily range): BP systolic 99–161; BP diastolic 60–117; PULSE 74–113; RESP 16–27; TEMP 36.9–37.4; O2SAT 26–100
[2024-11-28 07:04] LABS: HEMATOCRIT. 37.5 % (36.0-48.0); HEMOGLOBIN. 11.6 g/dL (12.0-16.0); MEAN PLATELET VOLUME 9.7 fl (7.4-10.4); PLATELET 112 x1000/uL (130-400); RED BLOOD CELL COUNT 4.51 mill/uL (4.2-5.4); RED CELL DISTRIBUTION WIDTH 15.0 % (11.6-14.6)
[2024-11-28 07:16] LABS: CREATININE 0.9 mg/dL (0.6-1.0); UREA NITROGEN BLOOD 19 mg/dL (9-23)
[2024-11-28 11:23] LABS: BAND% 1.0 % (1.0-6.0); LYMPHOCYTES % MANUAL 33.0 % (20.0-60.0); MONOCYTES % MANUAL 8.0 % (2.0-8.0); NEUTROPHILS % MANUAL 58.0 % (45.0-75.0); PLATELET ESTIMATE SLIGHTLY DECREASED
[2024-11-29] VITALS (21 sets, daily range): BP systolic 101–159; BP diastolic 68–116; PULSE 78–109; RESP 16–31; TEMP 36.8–37.6; O2SAT 92–100
[2024-11-29 06:26] LABS: INR 1.3
[2024-11-29 06:43] LABS: HEMATOCRIT. 35.1 % (36.0-48.0); HEMOGLOBIN. 11.1 g/dL (12.0-16.0); MEAN PLATELET VOLUME 9.7 fl (7.4-10.4); PLATELET 140 x1000/uL (130-400); RED BLOOD CELL COUNT 4.23 mill/uL (4.2-5.4); RED CELL DISTRIBUTION WIDTH 15.0 % (11.6-14.6)
[2024-11-29 07:00] LABS: CREATININE 0.9 mg/dL (0.6-1.0); UREA NITROGEN BLOOD 15 mg/dL (9-23)
[2024-11-29 07:02] LABS: ASPARTATE AMINOTRANSFERASE 20 IU/L (<34); BILIRUBIN TOTAL 0.6 mg/dL (0.1-1.0); PROTEIN TOTAL 5.7 g/dL (6.0-8.3)
[2024-11-29] MEDS: POTASSIUM CHLORIDE 20MEQ/PACKET PO SCH (10:02)
[2024-11-29 11:54] LABS: BAND% 3.0 % (1.0-6.0); EOSINOPHILS % MANUAL 2.0 % (0.0-5.0); LYMPHOCYTES % MANUAL 24.0 % (20.0-60.0); MONOCYTES % MANUAL 12.0 % (2.0-8.0); NEUTROPHILS % MANUAL 59.0 % (45.0-75.0); PLATELET ESTIMATE NORMAL
[2024-11-30] VITALS (28 sets, daily range): BP systolic 91–161; BP diastolic 57–92; PULSE 84–129; RESP 14–28; TEMP 36.5–37.3; O2SAT 95–100
[2024-11-30 06:32] LABS: CREATININE 0.8 mg/dL (0.6-1.0); UREA NITROGEN BLOOD 15 mg/dL (9-23)
[2024-11-30 06:49] LABS: PLATELET 180 x1000/uL (130-400); RED BLOOD CELL COUNT 4.02 mill/uL (4.2-5.4); RED CELL DISTRIBUTION WIDTH 15.2 % (11.6-14.6)
[2024-11-30] MEDS: KCL 10MEQ/50ML PREMIX 50 ML IV NR (10:52)
[2024-11-30] MEDS: LORAZEPAM 0.5MG TABLET GT SCH (14:29)
[2024-12-01] VITALS (20 sets, daily range): BP systolic 46–148; BP diastolic 34–103; PULSE 97–131; RESP 17–34; TEMP 37.1–37.9; O2SAT 94–100
[2024-12-01 06:41] LABS: PLATELET 249 x1000/uL (130-400); RED BLOOD CELL COUNT 4.38 mill/uL (4.2-5.4); RED CELL DISTRIBUTION WIDTH 15.4 % (11.6-14.6)
[2024-12-01 06:49] LABS: CREATININE 0.9 mg/dL (0.6-1.0); UREA NITROGEN BLOOD 16 mg/dL (9-23)
[2024-12-01] MEDS ORDERED: POTASSIUM CHLORIDE 20MEQ/PACKET PO SCH (09:00)
[2024-12-01] MEDS: POTASSIUM CHLORIDE 20MEQ/PACKET PO SCH (09:33)
[2024-12-01] MEDS: INSULIN GLARGINE 100 UNITS/ML SUBCUT SCH (10:46)
[2024-12-01] MEDS: MORPHINE SULFATE 4 MG/ML INJ (FOR IV/IM USE) IV PRN (13:35)
[2024-12-02] VITALS (24 sets, daily range): BP systolic 70–160; BP diastolic 52–117; PULSE 93–139; RESP 17–33; TEMP 36.6–37.6; O2SAT 94–100
[2024-12-02] MEDS: OLANZAPINE 2.5MG TABLET PO PRN (00:18)
[2024-12-02 07:06] LABS: BASOPHILS % 0.8 % (0.0-2.0); EOSINOPHILS % 0.6 % (0.0-5.0); HEMATOCRIT. 39.5 % (36.0-48.0); HEMOGLOBIN. 12.6 g/dL (12.0-16.0); LYMPHOCYTES % 33.8 % (20.0-50.0); MONOCYTES % 9.2 % (2.0-8.0); NEUTROPHILS % 55.6 % (40.0-76.0); RED BLOOD CELL COUNT 4.70 mill/uL (4.2-5.4); RED CELL DISTRIBUTION WIDTH 15.3 % (11.6-14.6)
[2024-12-02 07:26] LABS: T4 FREE 1.30 ng/dL (0.89-1.76)
[2024-12-02 07:30] LABS: CREATININE 1.1 mg/dL (0.6-1.0)
[2024-12-02 07:31] LABS: UREA NITROGEN BLOOD 19 mg/dL (9-23)
[2024-12-02 07:33] LABS: PHOSPHORUS 3.5 mg/dL (2.5-4.9)
[2024-12-02 08:29] LABS: PLATELET 281 x1000/uL (130-400)
[2024-12-02] MEDS: POTASSIUM CHLORIDE 20MEQ/PACKET PO SCH (08:38)
[2024-12-02] MEDS ORDERED: AMIODARONE 150MG/100ML D5W 100 ML IV ONE (09:30)
[2024-12-02] MEDS: OLANZAPINE 5MG TABLET PO PRN (10:29)
[2024-12-02] MEDS: DIGOXIN 500MCG/2ML AMP IV SCH (10:29)
[2024-12-02] MEDS: DILTIAZEM HCL 30MG TABLET NG SCH (13:46)
[2024-12-02] MEDS ORDERED: NALOXONE HCL 0.4MG/ML VIAL IV PRN (14:30)
[2024-12-02] MEDS: LORAZEPAM 2MG/ML UD SYRINGE IV PRN (15:47)
[2024-12-02] MEDS ORDERED: DIGOXIN 500MCG/2ML AMP IV PRN (18:00)
[2024-12-02] MEDS ORDERED: DIGOXIN 500MCG/2ML AMP IV SCH (18:00)
[2024-12-03] VITALS (24 sets, daily range): BP systolic 95–161; BP diastolic 56–115; PULSE 71–135; RESP 17–36; TEMP 36.2–37.8; O2SAT 85–100
[2024-12-03] MEDS: DILTIAZEM HCL 60MG TABLET NG SCH (00:38)
[2024-12-03 07:06] LABS: HEMATOCRIT. 37.6 % (36.0-48.0); HEMOGLOBIN. 11.9 g/dL (12.0-16.0); MEAN PLATELET VOLUME 8.9 fl (7.4-10.4); PLATELET 352 x1000/uL (130-400); RED BLOOD CELL COUNT 4.52 mill/uL (4.2-5.4); RED CELL DISTRIBUTION WIDTH 15.9 % (11.6-14.6)
[2024-12-03 07:31] LABS: CREATININE 1.2 mg/dL (0.6-1.0); UREA NITROGEN BLOOD 22.0 mg/dL (9-23)
[2024-12-03] MEDS: LEVOTHYROXINE SODIUM 25MCG TABLET PO SCH (10:25)
[2024-12-03] MEDS: MORPHINE SULFATE 4 MG/ML INJ (FOR IV/IM USE) IV PRN (13:06)
[2024-12-03] MEDS: INSULIN GLARGINE 100 UNITS/ML SUBCUT SCH (13:43)
[2024-12-03] MEDS: OLANZAPINE 5MG TABLET PO SCH (13:44)
[2024-12-03] MEDS: SODIUM CHLORIDE 0.45% 1,000 ML IV SCH (13:45)
[2024-12-03] MEDS: DIGOXIN 500MCG/2ML AMP IV PRN (13:54)
[2024-12-03] MEDS: DILTIAZEM HCL 90MG TABLET NG SCH (14:32)
[2024-12-03 16:59] LABS: BAND% 14.0 % (1.0-6.0); EOSINOPHILS % MANUAL 1.0 % (0.0-5.0); LYMPHOCYTES % MANUAL 26.0 % (20.0-60.0); METAMYELOCYTES % 2.0 % (0-0); MONOCYTES % MANUAL 7.0 % (2.0-8.0); MYELOCYTES % 1.0 % (0-0); NEUTROPHILS % MANUAL 49.0 % (45.0-75.0); NUCLEATED RED BLOOD CELLS 1 /100 WBC; PLATELET ESTIMATE NORMAL; PLATELET SATELLITISM FEW
[2024-12-03] MEDS: VANCOMYCIN 1GM PMX (XELLIA) 200 ML IV SCH (17:27)
[2024-12-04] VITALS (22 sets, daily range): BP systolic 100–159; BP diastolic 54–129; PULSE 64–129; RESP 18–32; TEMP 36.6–37.3; O2SAT 93–100
[2024-12-04] MEDS: BLOOD SUGAR DIAGNOSTIC STRIP TEST SCH (12:30)
[2024-12-04] MEDS: INSULIN LISPRO 100 UNITS/ML SUBCUT SCH (13:59)
[2024-12-05] VITALS (16 sets, daily range): BP systolic 95–154; BP diastolic 55–138; PULSE 62–124; RESP 16–28; TEMP 36.4–37.1; O2SAT 95–100
[2024-12-05 06:53] LABS: CREATININE 1.0 mg/dL (0.6-1.0); UREA NITROGEN BLOOD 20 mg/dL (9-23)
[2024-12-05] MEDS: VANCOMYCIN 1.25GM/250ML IV SCH (14:09)
[2024-12-05] MEDS ORDERED: IPRATROPIUM/ALBUTEROL 0.5-3(2.5)MG/3ML NEB HHN PRN (16:45)
[2024-12-05] MEDS: IPRATROPIUM/ALBUTEROL 0.5-3(2.5)MG/3ML NEB HHN SCH (21:21)
[2024-12-06] VITALS (21 sets, daily range): BP systolic 111–139; BP diastolic 57–84; PULSE 58–100; RESP 14–31; TEMP 36.1–37; O2SAT 91–100
[2024-12-06 06:38] LABS: CREATININE 0.8 mg/dL (0.6-1.0); UREA NITROGEN BLOOD 14 mg/dL (9-23)
[2024-12-06] MEDS: DIPHENHYDRAMINE 50MG CAPSULE PO SCH (11:56)
[2024-12-06 17:26] LABS: BG BASE EXCESS 2.0 mmol/L (-2.0-3.0); BG CARBOXYHEMOGLOBIN 0.5 % (0.5-1.5); BG DEOXYHEMOGLOBIN 6.7 % (0.0-5.0); BG FRACTION INSPIRED OXYGEN 35; BG HCO3 ACT 27.9 mmol/L (21.0-28.0); BG METHEMOGLOBIN 0.0 % (0.5-1.5); BG OXYGEN SATURATION 93.3 % (94.0-98.0); BG OXYHEMOGLOBIN 92.8 % (94.0-98.0); BG PCO2 49.2 mmHg (32.0-45.0); BG PEEP (cmH2O) 5.0 cmH2O; BG PH 7.372 (7.350-7.450); BG PO2 72.3 mmHg (83.0-108.0); BG SAMPLE SITE RIGHT RADIAL; BG TOTAL HEMOGLOBIN 12.2 g/dL (12.0-16.0); BG VENT MODE VENT - CPAP
[2024-12-07] VITALS (23 sets, daily range): BP systolic 104–133; BP diastolic 60–106; PULSE 59–116; RESP 16–36; TEMP 36.1–37.2; O2SAT 91–99
[2024-12-07 06:32] LABS: CREATININE 0.9 mg/dL (0.6-1.0)
[2024-12-07 06:33] LABS: UREA NITROGEN BLOOD 19 mg/dL (9-23)
[2024-12-07] MEDS: LORAZEPAM 2MG/ML UD SYRINGE IV PRN ×2 (09:55→20:07)
[2024-12-08] VITALS (23 sets, daily range): BP systolic 104–149; BP diastolic 69–106; PULSE 56–96; RESP 13–27; TEMP 36.3–36.9; O2SAT 93–100
[2024-12-08 06:55] LABS: T4 FREE 1.1 ng/dL (0.89-1.76)
[2024-12-08] MEDS: DILTIAZEM HCL 90MG TABLET NG SCH (14:46)
[2024-12-08] MEDS: FUROSEMIDE 40MG/4ML VIAL IVP SCH (18:43)
[2024-12-09] VITALS (22 sets, daily range): BP systolic 100–131; BP diastolic 60–89; PULSE 59–115; RESP 16–36; TEMP 36.3–36.9; O2SAT 93–100
[2024-12-09 06:54] LABS: HEMATOCRIT. 35.2 % (36.0-48.0); HEMOGLOBIN. 11.0 g/dL (12.0-16.0); MEAN PLATELET VOLUME 8.2 fl (7.4-10.4); PLATELET 419 x1000/uL (130-400); RED BLOOD CELL COUNT 4.16 mill/uL (4.2-5.4); RED CELL DISTRIBUTION WIDTH 16.5 % (11.6-14.6)
[2024-12-09 07:13] LABS: CREATININE 0.9 mg/dL (0.6-1.0); UREA NITROGEN BLOOD 16 mg/dL (9-23)
[2024-12-09 07:15] LABS: ASPARTATE AMINOTRANSFERASE 18 IU/L (<34)
[2024-12-09 07:16] LABS: BILIRUBIN TOTAL 0.4 mg/dL (0.1-1.0); PROTEIN TOTAL 6.0 g/dL (6.0-8.3)
[2024-12-09] MEDS: LEVOTHYROXINE SODIUM 50MCG TABLET PO SCH (07:20)
[2024-12-09] MEDS: HALOPERIDOL LACTATE 5MG/ML VIAL IM SCH (13:00)
[2024-12-09] MEDS: METHYLPREDNISOLONE SOD SUCC 40MG/ML (ACT-O-VIAL) IV SCH (14:24)
[2024-12-09 16:18] LABS: BAND% 2.0 % (1.0-6.0); LYMPHOCYTES % MANUAL 35.0 % (20.0-60.0); MONOCYTES % MANUAL 17.0 % (2.0-8.0); NEUTROPHILS % MANUAL 46.0 % (45.0-75.0); PLATELET ESTIMATE INCREASED
[2024-12-10] VITALS (26 sets, daily range): BP systolic 110–157; BP diastolic 23–116; PULSE 52–112; RESP 15–32; TEMP 36.3–37.2; O2SAT 32–99
[2024-12-10] MEDS: HALOPERIDOL LACTATE 5MG/ML VIAL IM PRN (08:17)
[2024-12-10] MEDS ORDERED: METHYLPREDNISOLONE SOD SUCC 40MG/ML (ACT-O-VIAL) IV SCH (09:00)
[2024-12-10] MEDS: DIVALPROEX SODIUM 250MG DR TABLET PO SCH (21:00)
[2024-12-11] VITALS (28 sets, daily range): BP systolic 99–142; BP diastolic 75–109; PULSE 84–121; RESP 12–34; TEMP 36.6–37.1; O2SAT 94–99
[2024-12-11] MEDS: PREDNISONE 10MG TABLET PO SCH (09:54)
[2024-12-11 11:03] LABS: HEMATOCRIT. 36.3 % (36.0-48.0); HEMOGLOBIN. 11.3 g/dL (12.0-16.0); MEAN PLATELET VOLUME 8.2 fl (7.4-10.4); PLATELET 369 x1000/uL (130-400); RED BLOOD CELL COUNT 4.23 mill/uL (4.2-5.4); RED CELL DISTRIBUTION WIDTH 17.1 % (11.6-14.6)
[2024-12-11 11:23] LABS: CREATININE 1.0 mg/dL (0.6-1.0); UREA NITROGEN BLOOD 23 mg/dL (9-23)
[2024-12-11 11:25] LABS: ASPARTATE AMINOTRANSFERASE 14 IU/L (<34); BILIRUBIN TOTAL 0.4 mg/dL (0.1-1.0)
[2024-12-11 11:26] LABS: PROTEIN TOTAL 6.6 g/dL (6.0-8.3)
[2024-12-11] MEDS: DIVALPROEX SODIUM 125MG SPRINKLE CAPSULE PO SCH (12:03)
[2024-12-11 15:35] LABS: LYMPHOCYTES % MANUAL 21.0 % (20.0-60.0); METAMYELOCYTES % 4.0 % (0-0); MONOCYTES % MANUAL 8.0 % (2.0-8.0); MYELOCYTES % 3.0 % (0-0); NEUTROPHILS % MANUAL 64.0 % (45.0-75.0)
[2024-12-11 15:36] LABS: PLATELET ESTIMATE NORMAL
[2024-12-12] VITALS (24 sets, daily range): BP systolic 106–190; BP diastolic 47–154; PULSE 66–113; RESP 14–45; TEMP 36.7–38.1; O2SAT 95–100
[2024-12-12] MEDS: LORAZEPAM 2MG/ML UD SYRINGE IV NR (04:25)
[2024-12-12] MEDS: METHYLPREDNISOLONE SOD SUCC 125MG/2ML (ACT-O-VIAL) IV NR (04:36)
[2024-12-12] MEDS: MAGNESIUM 2 G PREMIX 50 ML IV NR (04:37)
[2024-12-12] MEDS: INSULIN LISPRO 100 UNITS/ML SUBCUT SCH ×2 (12:45→13:35)
[2024-12-12] MEDS: LORAZEPAM 2MG/ML UD SYRINGE IV PRN (20:34)
[2024-12-13] VITALS (20 sets, daily range): BP systolic 97–134; BP diastolic 71–102; PULSE 56–112; RESP 18–40; TEMP 36.4–37.2; O2SAT 97–100
[2024-12-14] VITALS (25 sets, daily range): BP systolic 93–132; BP diastolic 62–97; PULSE 53–110; RESP 14–48; TEMP 36.3–36.8; O2SAT 95–100
[2024-12-14] MEDS: INSULIN GLARGINE 100 UNITS/ML SUBCUT SCH (11:13)
[2024-12-14 12:55] LABS: BG BASE EXCESS 10.0 mmol/L (-2.0-3.0); BG CARBOXYHEMOGLOBIN 0.7 % (0.5-1.5); BG DEOXYHEMOGLOBIN 3.4 % (0.0-5.0); BG FRACTION INSPIRED OXYGEN 60; BG HCO3 ACT 34.5 mmol/L (21.0-28.0); BG METHEMOGLOBIN 0.3 % (0.5-1.5); BG OXYGEN SATURATION 96.6 % (94.0-98.0); BG OXYHEMOGLOBIN 95.6 % (94.0-98.0); BG PCO2 45.7 mmHg (32.0-45.0); BG PEEP (cmH2O) 8.0 cmH2O; BG PH 7.496 (7.350-7.450); BG PO2 83.4 mmHg (83.0-108.0); BG SAMPLE SITE RIGHT RADIAL; BG TIDAL VOLUME(mL) 450.0 mL; BG TOTAL HEMOGLOBIN 12.8 g/dL (12.0-16.0); BG VENT MODE VENT - AC; BG VENT RATE 18.0 set
[2024-12-14] MEDS: BLOOD SUGAR DIAGNOSTIC STRIP TEST SCH (13:01)
[2024-12-14] MEDS ORDERED: BLOOD SUGAR DIAGNOSTIC STRIP TEST SCH (21:00)
[2024-12-14] MEDS ORDERED: IPRATROPIUM/ALBUTEROL 0.5-3(2.5)MG/3ML NEB HHN PRN (21:15)
[2024-12-15] VITALS (22 sets, daily range): BP systolic 85–128; BP diastolic 56–96; PULSE 59–97; RESP 12–25; TEMP 36.2–37.1; O2SAT 96–100
[2024-12-15] MEDS: INSULIN LISPRO 100 UNITS/ML SUBCUT SCH
[2024-12-15] MEDS: BLOOD SUGAR DIAGNOSTIC STRIP TEST SCH (00:47)
[2024-12-15] MEDS: DIPHENHYDRAMINE 12.5MG/5ML UDC NG SCH (01:25)
[2024-12-15] MEDS: IPRATROPIUM/ALBUTEROL 0.5-3(2.5)MG/3ML NEB HHN SCH (02:40)
[2024-12-15 06:19] LABS: HEMATOCRIT. 37.6 % (36.0-48.0); HEMOGLOBIN. 11.7 g/dL (12.0-16.0); MEAN PLATELET VOLUME 8.3 fl (7.4-10.4); PLATELET 243 x1000/uL (130-400); RED BLOOD CELL COUNT 4.34 mill/uL (4.2-5.4); RED CELL DISTRIBUTION WIDTH 18.3 % (11.6-14.6)
[2024-12-15 06:37] LABS: CREATININE 1.3 mg/dL (0.6-1.0); UREA NITROGEN BLOOD 34 mg/dL (9-23)
[2024-12-15 06:39] LABS: ASPARTATE AMINOTRANSFERASE 14 IU/L (<34); BILIRUBIN TOTAL 0.5 mg/dL (0.1-1.0); PROTEIN TOTAL 6.4 g/dL (6.0-8.3)
[2024-12-15 13:33] LABS: BAND% 5.0 % (1.0-6.0); LYMPHOCYTES % MANUAL 39.0 % (20.0-60.0); METAMYELOCYTES % 3.0 % (0-0); MONOCYTES % MANUAL 9.0 % (2.0-8.0); MYELOCYTES % 2.0 % (0-0); NEUTROPHILS % MANUAL 42.0 % (45.0-75.0)
[2024-12-15 13:36] LABS: PLATELET ESTIMATE NORMAL
[2024-12-16] VITALS (22 sets, daily range): BP systolic 101–147; BP diastolic 57–78; PULSE 56–98; RESP 15–32; TEMP 36.3–36.9; O2SAT 93–100
[2024-12-16 08:45] LABS: HEMATOCRIT. 39.0 % (36.0-48.0); HEMOGLOBIN. 12.3 g/dL (12.0-16.0); MEAN PLATELET VOLUME 8.3 fl (7.4-10.4); PLATELET 209 x1000/uL (130-400); RED BLOOD CELL COUNT 4.58 mill/uL (4.2-5.4); RED CELL DISTRIBUTION WIDTH 18.3 % (11.6-14.6)
[2024-12-16 09:29] LABS: CREATININE 1.3 mg/dL (0.6-1.0); UREA NITROGEN BLOOD 29.0 mg/dL (9-23)
[2024-12-16 14:34] LABS: BAND% 2.0 % (1.0-6.0); EOSINOPHILS % MANUAL 2.0 % (0.0-5.0); LYMPHOCYTES % MANUAL 41.0 % (20.0-60.0); METAMYELOCYTES % 2.0 % (0-0); MONOCYTES % MANUAL 6.0 % (2.0-8.0); MYELOCYTES % 6.0 % (0-0); NEUTROPHILS % MANUAL 41.0 % (45.0-75.0)
[2024-12-16 14:35] LABS: PLATELET ESTIMATE NORMAL
[2024-12-17] VITALS (22 sets, daily range): BP systolic 94–126; BP diastolic 63–102; PULSE 65–105; RESP 14–35; TEMP 36.4–36.9; O2SAT 95–100
[2024-12-17] MEDS ORDERED: VALPROIC ACID 250MG CAPSULE PO SCH (21:00)
[2024-12-17] MEDS: VALPROATE SODIUM 250MG/5ML UDC PO SCH (21:42)
[2024-12-18] VITALS (20 sets, daily range): BP systolic 91–139; BP diastolic 59–92; PULSE 64–90; RESP 16–31; TEMP 35.8–37.4; O2SAT 94–100
[2024-12-19] VITALS (24 sets, daily range): BP systolic 90–140; BP diastolic 49–93; PULSE 65–99; RESP 15–27; TEMP 36.6–37.7; O2SAT 86–100
[2024-12-19] MEDS: ACETAMINOPHEN 325MG TABLET PO SCH (01:58)
[2024-12-19] MEDS: PANTOPRAZOLE SODIUM 40 MG/VIAL IV SCH (09:48)
[2024-12-19] MEDS: ENOXAPARIN 40MG/0.4ML SYR SUBCUT SCH (09:49)
[2024-12-19] MEDS: OLANZAPINE 10MG TABLET PO SCH (21:24)
[2024-12-20] VITALS (24 sets, daily range): BP systolic 83–135; BP diastolic 51–92; PULSE 66–105; RESP 15–35; TEMP 36.4–37; O2SAT 91–100
[2024-12-20 09:41] LABS: BG BASE EXCESS 7.7 mmol/L (-2.0-3.0); BG CARBOXYHEMOGLOBIN 0.4 % (0.5-1.5); BG DEOXYHEMOGLOBIN 3.2 % (0.0-5.0); BG FRACTION INSPIRED OXYGEN 40; BG HCO3 ACT 32.2 mmol/L (21.0-28.0); BG METHEMOGLOBIN 0.3 % (0.5-1.5); BG OXYGEN SATURATION 96.8 % (94.0-98.0); BG OXYHEMOGLOBIN 96.1 % (94.0-98.0); BG PCO2 45.0 mmHg (32.0-45.0); BG PEEP (cmH2O) 5.0 cmH2O; BG PH 7.473 (7.350-7.450); BG PO2 86.7 mmHg (83.0-108.0); BG SAMPLE SITE RIGHT RADIAL; BG TIDAL VOLUME(mL) 450.0 mL; BG TOTAL HEMOGLOBIN 12.1 g/dL (12.0-16.0); BG TOTAL RESPIRATORY RATE 17 b/min; BG VENT MODE VENT - AC; BG VENT RATE 14.0 set
[2024-12-20] MEDS: APIXABAN 5 MG TABLET PO SCH (20:46)
[2024-12-21] VITALS (22 sets, daily range): BP systolic 111–166; BP diastolic 62–122; PULSE 71–84; RESP 14–34; TEMP 36.3–37.3; O2SAT 93–100
[2024-12-21 06:30] LABS: CREATININE 0.9 mg/dL (0.6-1.0); UREA NITROGEN BLOOD 13 mg/dL (9-23)
[2024-12-21 06:38] LABS: HEMATOCRIT. 34.7 % (36.0-48.0); HEMOGLOBIN. 11.1 g/dL (12.0-16.0); MEAN PLATELET VOLUME 9.3 fl (7.4-10.4); PLATELET 210 x1000/uL (130-400); RED BLOOD CELL COUNT 4.02 mill/uL (4.2-5.4); RED CELL DISTRIBUTION WIDTH 17.5 % (11.6-14.6)
[2024-12-21] MEDS ORDERED: METHOCARBAMOL 750MG TABLET PO SCH (14:00)
[2024-12-21] MEDS: METHOCARBAMOL 500MG TABLET PO SCH (15:23)
[2024-12-21] MEDS: AMIODARONE 200MG TABLET PO SCH (15:24)
[2024-12-21] MEDS: DILTIAZEM HCL 60MG TABLET NG SCH (15:24)
[2024-12-21 15:29] LABS: BAND% 8.0 % (1.0-6.0); LYMPHOCYTES % MANUAL 19.0 % (20.0-60.0); METAMYELOCYTES % 7.0 % (0-0); MONOCYTES % MANUAL 20.0 % (2.0-8.0); MYELOCYTES % 2.0 % (0-0); NEUTROPHILS % MANUAL 44.0 % (45.0-75.0); PLATELET ESTIMATE NORMAL
[2024-12-21 18:44] LABS: BG BASE EXCESS 9.9 mmol/L (-2.0-3.0); BG CARBOXYHEMOGLOBIN 0.9 % (0.5-1.5); BG DEOXYHEMOGLOBIN 2.9 % (0.0-5.0); BG FRACTION INSPIRED OXYGEN 40; BG HCO3 ACT 35.1 mmol/L (21.0-28.0); BG METHEMOGLOBIN 0.3 % (0.5-1.5); BG OXYGEN SATURATION 97.1 % (94.0-98.0); BG OXYHEMOGLOBIN 95.9 % (94.0-98.0); BG PCO2 50.3 mmHg (32.0-45.0); BG PEEP (cmH2O) 5.0 cmH2O; BG PH 7.462 (7.350-7.450); BG PO2 90.2 mmHg (83.0-108.0); BG SAMPLE SITE RIGHT RADIAL; BG TOTAL HEMOGLOBIN 11.7 g/dL (12.0-16.0); BG VENT MODE VENT - CPAP
[2024-12-21] MEDS: ACETAMINOPHEN 650MG/20.3ML UDC PO PRN (22:16)
[2024-12-22] VITALS (22 sets, daily range): BP systolic 102–165; BP diastolic 67–98; PULSE 66–116; RESP 16–36; TEMP 36.2–37.2; O2SAT 94–100
[2024-12-22 06:27] LABS: CREATININE 1.0 mg/dL (0.6-1.0)
[2024-12-22 06:28] LABS: UREA NITROGEN BLOOD 17 mg/dL (9-23)
[2024-12-22 06:29] LABS: ASPARTATE AMINOTRANSFERASE 13 IU/L (<34)
[2024-12-22 06:30] LABS: BILIRUBIN TOTAL 0.6 mg/dL (0.1-1.0); PROTEIN TOTAL 6.3 g/dL (6.0-8.3)
[2024-12-22 06:37] LABS: HEMATOCRIT. 32.5 % (36.0-48.0); HEMOGLOBIN. 10.2 g/dL (12.0-16.0); MEAN PLATELET VOLUME 9.1 fl (7.4-10.4); PLATELET 227 x1000/uL (130-400); RED BLOOD CELL COUNT 3.74 mill/uL (4.2-5.4); RED CELL DISTRIBUTION WIDTH 17.9 % (11.6-14.6)
[2024-12-22] MEDS: HYDRALAZINE HCL 25MG TABLET PO SCH (11:46)
[2024-12-22 12:37] LABS: BAND% 8.0 % (1.0-6.0); METAMYELOCYTES % 5.0 % (0-0); MONOCYTES % MANUAL 13.0 % (2.0-8.0)
[2024-12-22 12:38] LABS: LYMPHOCYTES % MANUAL 23.0 % (20.0-60.0); NEUTROPHILS % MANUAL 51.0 % (45.0-75.0); PLATELET ESTIMATE NORMAL
[2024-12-23] VITALS (23 sets, daily range): BP systolic 112–181; BP diastolic 65–119; PULSE 76–90; RESP 13–28; TEMP 36.3–37.2; O2SAT 91–100
[2024-12-23 18:55] LABS: BG BASE EXCESS 10.5 mmol/L (-2.0-3.0); BG CARBOXYHEMOGLOBIN 0.7 % (0.5-1.5); BG DEOXYHEMOGLOBIN 11.7 % (0.0-5.0); BG FRACTION INSPIRED OXYGEN 28; BG HCO3 ACT 35.8 mmol/L (21.0-28.0); BG METHEMOGLOBIN 0.3 % (0.5-1.5); BG OXYGEN SATURATION 88.2 % (94.0-98.0); BG OXYHEMOGLOBIN 87.3 % (94.0-98.0); BG PCO2 51.0 mmHg (32.0-45.0); BG PH 7.464 (7.350-7.450); BG PO2 54.6 mmHg (83.0-108.0); BG SAMPLE SITE RIGHT RADIAL; BG TOTAL HEMOGLOBIN 12.0 g/dL (12.0-16.0); BG VENT MODE COOL AEROSOL
[2024-12-23] MEDS: APIXABAN 2.5 MG TABLET PO SCH (21:42)
[2024-12-24] VITALS (22 sets, daily range): BP systolic 95–149; BP diastolic 61–99; PULSE 79–98; RESP 16–36; TEMP 36.6–36.8; O2SAT 10–100
[2024-12-24 06:04] LABS: HEMATOCRIT. 35.3 % (36.0-48.0); HEMOGLOBIN. 10.9 g/dL (12.0-16.0); MEAN PLATELET VOLUME 8.4 fl (7.4-10.4); PLATELET 266 x1000/uL (130-400); RED BLOOD CELL COUNT 4.10 mill/uL (4.2-5.4); RED CELL DISTRIBUTION WIDTH 18.2 % (11.6-14.6)
[2024-12-24 06:24] LABS: CREATININE 0.9 mg/dL (0.6-1.0)
[2024-12-24 06:26] LABS: UREA NITROGEN BLOOD 13 mg/dL (9-23)
[2024-12-24] MEDS: LEVOTHYROXINE SODIUM 75MCG TABLET PO SCH (09:08)
[2024-12-24] MEDS: MAGNESIUM OXIDE 400MG TABLET NG SCH (09:34)
[2024-12-24] MEDS: MAGNESIUM 2 G PREMIX 50 ML IV NR (09:34)
[2024-12-24 11:22] LABS: BAND% 6.0 % (1.0-6.0); EOSINOPHILS % MANUAL 1.0 % (0.0-5.0); LYMPHOCYTES % MANUAL 28.0 % (20.0-60.0); METAMYELOCYTES % 2.0 % (0-0); MONOCYTES % MANUAL 19.0 % (2.0-8.0); MYELOCYTES % 3.0 % (0-0); NEUTROPHILS % MANUAL 41.0 % (45.0-75.0); PLATELET ESTIMATE NORMAL
[2024-12-24] MEDS: DILTIAZEM HCL 30MG TABLET NG SCH (13:47)
[2024-12-24] MEDS: METHOCARBAMOL 750MG TABLET PO SCH (22:34)
[2024-12-25] VITALS (20 sets, daily range): BP systolic 108–137; BP diastolic 57–90; PULSE 82–98; RESP 14–26; TEMP 36.4–37.1; O2SAT 93–100
[2024-12-25 11:40] LABS: HEMATOCRIT. 34.8 % (36.0-48.0); HEMOGLOBIN. 10.9 g/dL (12.0-16.0); MEAN PLATELET VOLUME 8.1 fl (7.4-10.4); PLATELET 268 x1000/uL (130-400); RED BLOOD CELL COUNT 4.06 mill/uL (4.2-5.4); RED CELL DISTRIBUTION WIDTH 18.6 % (11.6-14.6)
[2024-12-25 11:59] LABS: CREATININE 0.9 mg/dL (0.6-1.0)
[2024-12-25 12:00] LABS: UREA NITROGEN BLOOD 12 mg/dL (9-23)
[2024-12-25 12:12] LABS: BAND% 8.0 % (1.0-6.0); EOSINOPHILS % MANUAL 1.0 % (0.0-5.0); LYMPHOCYTES % MANUAL 22.0 % (20.0-60.0); METAMYELOCYTES % 1.0 % (0-0); MONOCYTES % MANUAL 21.0 % (2.0-8.0); MYELOCYTES % 3.0 % (0-0); NEUTROPHILS % MANUAL 44.0 % (45.0-75.0); PLATELET ESTIMATE NORMAL
[2024-12-25 17:14] LABS: BG BASE EXCESS 10.4 mmol/L (-2.0-3.0); BG CARBOXYHEMOGLOBIN 1.0 % (0.5-1.5); BG DEOXYHEMOGLOBIN 2.1 % (0.0-5.0); BG FLOW(L/min) 12.00 L/min; BG FRACTION INSPIRED OXYGEN 60; BG HCO3 ACT 36.2 mmol/L (21.0-28.0); BG METHEMOGLOBIN 0.3 % (0.5-1.5); BG OXYGEN SATURATION 97.9 % (94.0-98.0); BG OXYHEMOGLOBIN 96.6 % (94.0-98.0); BG PCO2 53.7 mmHg (32.0-45.0); BG PH 7.446 (7.350-7.450); BG PO2 100.6 mmHg (83.0-108.0); BG SAMPLE SITE LEFT RADIAL; BG TOTAL HEMOGLOBIN 11.8 g/dL (12.0-16.0); BG VENT MODE COOL AEROSOL
[2024-12-26] VITALS (22 sets, daily range): BP systolic 94–150; BP diastolic 60–77; PULSE 80–106; RESP 5–29; TEMP 36.4–37; O2SAT 84–100
[2024-12-26] MEDS: MELATONIN 3MG TABLET PO NR (00:30)
[2024-12-26 08:38] LABS: BG BASE EXCESS 11.0 mmol/L (-2.0-3.0); BG CARBOXYHEMOGLOBIN 0.8 % (0.5-1.5); BG DEOXYHEMOGLOBIN 0.5 % (0.0-5.0); BG FLOW(L/min) 10.00 L/min; BG FRACTION INSPIRED OXYGEN 60; BG HCO3 ACT 37.4 mmol/L (21.0-28.0); BG METHEMOGLOBIN 0.1 % (0.5-1.5); BG OXYGEN SATURATION 99.5 % (94.0-98.0); BG OXYHEMOGLOBIN 98.6 % (94.0-98.0); BG PCO2 58.4 mmHg (32.0-45.0); BG PH 7.424 (7.350-7.450); BG PO2 174.8 mmHg (83.0-108.0); BG SAMPLE SITE RIGHT RADIAL; BG TOTAL HEMOGLOBIN 11.9 g/dL (12.0-16.0); BG VENT MODE COOL AEROSOL
[2024-12-26] MEDS: THROAT LOZENGES-BENZOCAINE/MENTH/CETYLPYRD CL LOZENGES MM PRN (17:39)
[2024-12-26] MEDS: DEXTROSE 50% WATER 50ML SYRINGE IV PRN (17:40)
[2024-12-26] MEDS: GUAIFENESIN 200MG/10ML SUGAR FREE UDC PO PRN (22:11)
[2024-12-26 22:23] LABS: HEMATOCRIT. 34.7 % (36.0-48.0); HEMOGLOBIN. 10.7 g/dL (12.0-16.0); MEAN PLATELET VOLUME 8.2 fl (7.4-10.4); PLATELET 278 x1000/uL (130-400); RED BLOOD CELL COUNT 3.99 mill/uL (4.2-5.4); RED CELL DISTRIBUTION WIDTH 18.3 % (11.6-14.6)
[2024-12-26 22:33] LABS: CREATININE 0.7 mg/dL (0.6-1.0); UREA NITROGEN BLOOD 8 mg/dL (9-23)
[2024-12-26 22:45] LABS: BAND% 6.0 % (1.0-6.0); EOSINOPHILS % MANUAL 2.0 % (0.0-5.0); LYMPHOCYTES % MANUAL 23.0 % (20.0-60.0); METAMYELOCYTES % 2.0 % (0-0); MONOCYTES % MANUAL 11.0 % (2.0-8.0); MYELOCYTES % 2.0 % (0-0); NEUTROPHILS % MANUAL 54.0 % (45.0-75.0); PLATELET ESTIMATE NORMAL
[2024-12-27] VITALS (14 sets, daily range): BP systolic 139–179; BP diastolic 61–115; PULSE 85–102; RESP 14–25; TEMP 36.2–37.1; O2SAT 94–100
[2024-12-27] MEDS: AMIODARONE 200MG TABLET GT SCH (11:07)
[2024-12-27] MEDS: HYDRALAZINE HCL 50MG TABLET PO SCH (14:24)
[2024-12-28] VITALS (16 sets, daily range): BP systolic 95–150; BP diastolic 61–100; PULSE 86–112; RESP 13–31; TEMP 36.3–36.6; O2SAT 81–100
[2024-12-28] MEDS: INSULIN LISPRO 100 UNITS/ML SUBCUT SCH
[2024-12-28] MEDS: INSULIN GLARGINE 100 UNITS/ML SUBCUT SCH (10:00)
[2024-12-29] VITALS (15 sets, daily range): BP systolic 111–163; BP diastolic 75–88; PULSE 78–108; RESP 12–38; TEMP 36.3–36.9; O2SAT 87–100
[2024-12-29] MEDS: INSULIN LISPRO 100 UNITS/ML SUBCUT SCH (07:30)
[2024-12-29] MEDS: MELATONIN 3MG TABLET PO SCH (22:32)
[2024-12-30] VITALS (15 sets, daily range): BP systolic 142–196; BP diastolic 83–103; PULSE 94–125; RESP 19–27; TEMP 36.2–36.4; O2SAT 93–100
[2024-12-30] MEDS: SIMETHICONE 80MG TABLET CHEW PO PRN (10:59)
[2024-12-30] MEDS ORDERED: DEXTROSE 50% WATER 50ML SYRINGE IV PRN (20:15)
[2024-12-30] MEDS: INSULIN LISPRO 100 UNITS/ML SUBCUT SCH (21:00)
[2024-12-30] MEDS: BLOOD SUGAR DIAGNOSTIC STRIP TEST SCH (21:44)
[2024-12-30] MEDS: DILTIAZEM HCL 60MG TABLET NG SCH (21:44)
[2024-12-31] VITALS (10 sets, daily range): BP systolic 107–133; BP diastolic 58–102; PULSE 91–110; RESP 16–24; TEMP 36.3–37.3; O2SAT 91–97
[2024-12-31] MEDS: MELATONIN 3MG TABLET PO SCH (03:32)
[2024-12-31] MEDS: HYDRALAZINE HCL 25MG TABLET PO SCH (13:44)
[2024-12-31 22:14] LABS: HEMATOCRIT. 32.8 % (36.0-48.0); HEMOGLOBIN. 10.3 g/dL (12.0-16.0); MEAN PLATELET VOLUME 7.9 fl (7.4-10.4); PLATELET 306 x1000/uL (130-400); RED BLOOD CELL COUNT 3.79 mill/uL (4.2-5.4); RED CELL DISTRIBUTION WIDTH 18.5 % (11.6-14.6)
[2024-12-31] MEDS: DIPHENHYDRAMINE 50MG CAPSULE PO PRN (22:28)
[2024-12-31] MEDS: DILTIAZEM HCL 60MG TABLET PO SCH (22:28)
[2024-12-31 22:30] LABS: CREATININE 1.0 mg/dL (0.6-1.0); UREA NITROGEN BLOOD 15 mg/dL (9-23)
[2024-12-31 22:32] LABS: ASPARTATE AMINOTRANSFERASE 13 IU/L (<34)
[2024-12-31 22:33] LABS: BILIRUBIN TOTAL 0.3 mg/dL (0.1-1.0); PROTEIN TOTAL 6.8 g/dL (6.0-8.3)
[2025-01-01] VITALS (7 sets, daily range): BP systolic 112–159; BP diastolic 59–87; PULSE 86–101; RESP 18–25; TEMP 36.3–37.2; O2SAT 95–98
[2025-01-01 00:10] LABS: EOSINOPHILS % MANUAL 2.0 % (0.0-5.0); LYMPHOCYTES % MANUAL 31.0 % (20.0-60.0); METAMYELOCYTES % 1.0 % (0-0); MONOCYTES % MANUAL 14.0 % (2.0-8.0); MYELOCYTES % 1.0 % (0-0); NEUTROPHILS % MANUAL 51.0 % (45.0-75.0); PLATELET ESTIMATE NORMAL
[2025-01-01] MEDS: IPRATROPIUM/ALBUTEROL 0.5-3(2.5)MG/3ML NEB HHN PRN (18:13)
[2025-01-02] VITALS (8 sets, daily range): BP systolic 131–152; BP diastolic 70–96; PULSE 89–99; RESP 18–22; TEMP 36.7–37.2; O2SAT 93–99
[2025-01-02] MEDS: PANTOPRAZOLE 40MG DR TABLET PO SCH (09:00)
[2025-01-02] MEDS: BACITRACIN 14GM TUBE TOP PRN (15:25)
[2025-01-02] MEDS: HYDRALAZINE HCL 25MG TABLET PO SCH (21:07)
[2025-01-03] VITALS (9 sets, daily range): BP systolic 118–133; BP diastolic 59–80; PULSE 89–97; RESP 16–24; TEMP 36.1–37.1; O2SAT 96–100
[2025-01-03] MEDS: INSULIN GLARGINE 100 UNITS/ML SUBCUT SCH (23:15)
[2025-01-04] VITALS (8 sets, daily range): BP systolic 105–142; BP diastolic 50–82; PULSE 85–96; RESP 18–24; TEMP 36.6–37.1; O2SAT 95–96
[2025-01-05] VITALS (11 sets, daily range): BP systolic 132–158; BP diastolic 70–79; PULSE 82–102; RESP 20–24; TEMP 36.4–36.7; O2SAT 95–100
[2025-01-05] MEDS: IPRATROPIUM/ALBUTEROL 0.5-3(2.5)MG/3ML NEB HHN SCH (01:16)
[2025-01-05] MEDS: BUDESONIDE 0.5MG/2ML NEB HHN SCH (01:16)
[2025-01-05 08:44] LABS: BASOPHILS % 0.6 % (0.0-2.0); EOSINOPHILS % 3.0 % (0.0-5.0); HEMATOCRIT. 30.6 % (36.0-48.0); HEMOGLOBIN. 9.7 g/dL (12.0-16.0); LYMPHOCYTES % 31.3 % (20.0-50.0); MEAN PLATELET VOLUME 7.8 fl (7.4-10.4); MONOCYTES % 14.8 % (2.0-8.0); NEUTROPHILS % 50.3 % (40.0-76.0); PLATELET 284 x1000/uL (130-400); RED BLOOD CELL COUNT 3.49 mill/uL (4.2-5.4); RED CELL DISTRIBUTION WIDTH 18.8 % (11.6-14.6)
[2025-01-05 09:27] LABS: CREATININE 1.0 mg/dL (0.6-1.0); UREA NITROGEN BLOOD 12 mg/dL (9-23)
[2025-01-05 09:29] LABS: ASPARTATE AMINOTRANSFERASE 12 IU/L (<34); BILIRUBIN TOTAL 0.3 mg/dL (0.1-1.0); PROTEIN TOTAL 6.9 g/dL (6.0-8.3)
[2025-01-05] MEDS ORDERED: CEFEPIME 2GM IN DEXT 5% 100ML IV SCH (16:45)
[2025-01-05] MEDS: CEFEPIME 2GM PREMIX 100ML IV SCH (22:42)
[2025-01-06] VITALS (7 sets, daily range): BP systolic 132–175; BP diastolic 64–79; PULSE 89–98; RESP 16–23; TEMP 36.3–36.7; O2SAT 4–99
[2025-01-06 16:38] LABS: BASOPHILS % 0.6 % (0.0-2.0); EOSINOPHILS % 3.0 % (0.0-5.0); HEMATOCRIT. 28.7 % (36.0-48.0); HEMOGLOBIN. 9.3 g/dL (12.0-16.0); LYMPHOCYTES % 25.2 % (20.0-50.0); MEAN PLATELET VOLUME 7.8 fl (7.4-10.4); MONOCYTES % 11.6 % (2.0-8.0); NEUTROPHILS % 59.6 % (40.0-76.0); PLATELET 318 x1000/uL (130-400); RED BLOOD CELL COUNT 3.26 mill/uL (4.2-5.4); RED CELL DISTRIBUTION WIDTH 19.3 % (11.6-14.6)
[2025-01-06 16:53] LABS: CREATININE 1.0 mg/dL (0.6-1.0)
[2025-01-06 16:54] LABS: UREA NITROGEN BLOOD 16 mg/dL (9-23)
[2025-01-06] MEDS: OXYBUTYNIN CHLORIDE 5MG TABLET PO SCH (23:48)
[2025-01-06] MEDS: INSULIN GLARGINE 100 UNITS/ML SUBCUT SCH (23:49)
[2025-01-07] VITALS (10 sets, daily range): BP systolic 121–149; BP diastolic 50–81; PULSE 73–97; RESP 18–25; TEMP 36.6–37.1; O2SAT 92–100
[2025-01-07] MEDS: LEVOTHYROXINE SODIUM 100MCG TABLET PO SCH (06:39)
[2025-01-07 21:20] LABS: BASOPHILS % 0.5 % (0.0-2.0); EOSINOPHILS % 2.7 % (0.0-5.0); HEMATOCRIT. 28.3 % (36.0-48.0); HEMOGLOBIN. 8.9 g/dL (12.0-16.0); LYMPHOCYTES % 27.1 % (20.0-50.0); MEAN PLATELET VOLUME 7.7 fl (7.4-10.4); MONOCYTES % 12.5 % (2.0-8.0); NEUTROPHILS % 57.2 % (40.0-76.0); PLATELET 313 x1000/uL (130-400); RED BLOOD CELL COUNT 3.23 mill/uL (4.2-5.4); RED CELL DISTRIBUTION WIDTH 19.3 % (11.6-14.6)
[2025-01-07 21:30] LABS: CREATININE 0.8 mg/dL (0.6-1.0); UREA NITROGEN BLOOD 14 mg/dL (9-23)
[2025-01-08 08:00] VITALS: BP 139/78; PULSE 85; RESP 22; TEMP 36.2; O2SAT 96
[2025-01-08 08:23] VITALS: PULSE 85; RESP 20
[2025-01-08 12:00] VITALS: BP 146/97; PULSE 87; RESP 22; TEMP 36.2; O2SAT 97
[2025-01-08 13:48] VITALS: PULSE 75; RESP 22
[2025-01-08 20:00] VITALS: BP 125/40; PULSE 93; RESP 17; TEMP 36.4; O2SAT 95
[2025-01-08 20:17] VITALS: PULSE 84; RESP 20; O2SAT 95
[2025-01-09] VITALS (8 sets, daily range): BP systolic 119–151; BP diastolic 76–90; PULSE 75–104; RESP 17–22; TEMP 36.4–37.4; O2SAT 94–99
[2025-01-10 02:56] VITALS: PULSE 70; RESP 20; O2SAT 100
[2025-01-10] MEDS: TOBRAMYCIN SULFATE 40MG/ML 2ML INH SCH (02:56)
[2025-01-10 04:00] VITALS: BP 123/68; PULSE 83; RESP 18; TEMP 37.1; O2SAT 98
[2025-01-10 08:00] VITALS: BP 117/74; PULSE 66; RESP 20; TEMP 36.7; O2SAT 98
[2025-01-10 10:09] LABS: BASOPHILS % 0.8 % (0.0-2.0); EOSINOPHILS % 2.9 % (0.0-5.0); HEMATOCRIT. 32.2 % (36.0-48.0); HEMOGLOBIN. 10.0 g/dL (12.0-16.0); LYMPHOCYTES % 24.3 % (20.0-50.0); MEAN PLATELET VOLUME 7.6 fl (7.4-10.4); MONOCYTES % 8.5 % (2.0-8.0); NEUTROPHILS % 63.5 % (40.0-76.0); PLATELET 255 x1000/uL (130-400); RED BLOOD CELL COUNT 3.52 mill/uL (4.2-5.4); RED CELL DISTRIBUTION WIDTH 20.2 % (11.6-14.6)
[2025-01-10 10:25] LABS: CREATININE 0.9 mg/dL (0.6-1.0); UREA NITROGEN BLOOD 16 mg/dL (9-23)
[2025-01-10 12:00] VITALS: BP 126/80; PULSE 82; RESP 20; TEMP 36.4; O2SAT 100
[2025-01-10 16:00] VITALS: BP 150/91; PULSE 86; RESP 20; TEMP 36.3; O2SAT 100
[2025-01-11 08:00] VITALS: BP 137/75; PULSE 89; RESP 19; TEMP 36.4; O2SAT 100
[2025-01-11 12:00] VITALS: BP 131/63; PULSE 88; RESP 18; TEMP 36.4; O2SAT 99
[2025-01-11 16:00] VITALS: BP 111/38; PULSE 86; RESP 18; TEMP 36.6; O2SAT 100
[2025-01-11] MEDS ORDERED: IPRATROPIUM/ALBUTEROL 0.5-3(2.5)MG/3ML NEB HHN PRN (18:15)
[2025-01-11 20:00] VITALS: BP 148/83; PULSE 89; RESP 16; TEMP 36.5; O2SAT 95
[2025-01-12] VITALS: BP 144/83; PULSE 71; RESP 20; TEMP 36.3; O2SAT 99
[2025-01-12 12:00] VITALS: BP 149/93; PULSE 91; RESP 19; TEMP 36.2; O2SAT 100
[2025-01-12 16:00] VITALS: BP 142/53; PULSE 88; RESP 18; TEMP 36.1; O2SAT 97
[2025-01-12 20:00] VITALS: BP 135/73; PULSE 80; RESP 20; TEMP 36.4; O2SAT 95
[2025-01-13 08:00] VITALS: BP 122/66; PULSE 87; RESP 18; TEMP 36.5; O2SAT 98
[2025-01-13 09:35] LABS: INR 1.2
[2025-01-13 09:37] LABS: HEMATOCRIT. 29.7 % (36.0-48.0); HEMOGLOBIN. 9.3 g/dL (12.0-16.0); MEAN PLATELET VOLUME 7.9 fl (7.4-10.4); PLATELET 232 x1000/uL (130-400); RED BLOOD CELL COUNT 3.36 mill/uL (4.2-5.4); RED CELL DISTRIBUTION WIDTH 19.9 % (11.6-14.6)
[2025-01-13 09:52] LABS: CREATININE 0.7 mg/dL (0.6-1.0); UREA NITROGEN BLOOD 18 mg/dL (9-23)
[2025-01-13 09:54] LABS: T4 FREE 1.20 ng/dL (0.89-1.76)
[2025-01-13 12:00] VITALS: BP 154/63; PULSE 87; RESP 20; TEMP 36.7; O2SAT 96
[2025-01-13] MEDS: METOCLOPRAMIDE HCL 10MG/2ML VIAL IV NR (13:18)
[2025-01-13] MEDS: MORPHINE SULFATE 2 MG/ML INJ (NOT FOR IM USE) IV NR (13:19)
[2025-01-13 13:53] LABS: BG BASE EXCESS 6.6 mmol/L (-2.0-3.0); BG CARBOXYHEMOGLOBIN 0.9 % (0.5-1.5); BG DEOXYHEMOGLOBIN 9.6 % (0.0-5.0); BG FRACTION INSPIRED OXYGEN 21; BG HCO3 ACT 32.6 mmol/L (21.0-28.0); BG METHEMOGLOBIN 0.3 % (0.5-1.5); BG OXYGEN SATURATION 90.3 % (94.0-98.0); BG OXYHEMOGLOBIN 89.2 % (94.0-98.0); BG PCO2 54.6 mmHg (32.0-45.0); BG PH 7.394 (7.350-7.450); BG PO2 60.4 mmHg (83.0-108.0); BG SAMPLE SITE LEFT RADIAL; BG TOTAL HEMOGLOBIN 10.4 g/dL (12.0-16.0); BG VENT MODE ROOM AIR
[2025-01-13 16:00] VITALS: BP 145/65; PULSE 85; RESP 18; TEMP 36.6; O2SAT 97
[2025-01-13 16:38] LABS: BAND% 4.0 % (1.0-6.0); EOSINOPHILS % MANUAL 2.0 % (0.0-5.0); LYMPHOCYTES % MANUAL 25.0 % (20.0-60.0); METAMYELOCYTES % 2.0 % (0-0); MONOCYTES % MANUAL 11.0 % (2.0-8.0); MYELOCYTES % 2.0 % (0-0); NEUTROPHILS % MANUAL 54.0 % (45.0-75.0); PLATELET ESTIMATE NORMAL
[2025-01-13 20:00] VITALS: BP 143/78; PULSE 94; RESP 16; TEMP 36.2; O2SAT 96
[2025-01-14] MEDS: LEVOTHYROXINE SODIUM 125MCG TABLET PO SCH (06:53)
[2025-01-14 08:00] VITALS: BP 131/61; PULSE 91; RESP 20; TEMP 36.4; O2SAT 100
== END 2025-01-14 12:46 | disposition left against medical advice (07) | DRG 4 ==
LOC: ER 23:43 → 5EST 10-22 01:32 → 8WST 10-23 17:13 → 6EST 10-25 14:24 → CVICU 11-02 17:00 → 5EST 11-17 08:22 → MICUSO 11-21 19:00 → 5EST 11-27 22:38 → 7WST 01-01 16:27 → 6EST 01-06 18:12
PROVIDERS: ADMIT Hospitalist; ATTEND Hospitalist
PROC: 5A09357 Assistance with Respiratory Ventilation, Less than 24 Consecutive Hours, Continuous Positive Airway Pressure (ICD-10-PCS; 2024-10-22)
PROC: 5A09357 Assistance with Respiratory Ventilation, Less than 24 Consecutive Hours, Continuous Positive Airway Pressure (ICD-10-PCS; 2024-10-23)
PROC: 0BH17EZ Insertion of Endotracheal Airway into Trachea, Via Natural or Artificial Opening (ICD-10-PCS; 2024-11-02)
PROC: 5A1955Z Respiratory Ventilation, Greater than 96 Consecutive Hours (ICD-10-PCS; 2024-11-02)
PROC: 02HV33Z Insertion of Infusion Device into Superior Vena Cava, Percutaneous Approach (ICD-10-PCS; 2024-11-03)
PROC: B548ZZA Ultrasonography of Superior Vena Cava, Guidance (ICD-10-PCS; 2024-11-03)
PROC: 5A1D70Z Performance of Urinary Filtration, Intermittent, Less than 6 Hours Per Day (ICD-10-PCS; 2024-11-04)
PROC: 05HM33Z Insertion of Infusion Device into Right Internal Jugular Vein, Percutaneous Approach (ICD-10-PCS; 2024-11-04)
PROC: B543ZZA Ultrasonography of Right Jugular Veins, Guidance (ICD-10-PCS; 2024-11-04)
PROC: 5A1D70Z Performance of Urinary Filtration, Intermittent, Less than 6 Hours Per Day (ICD-10-PCS; 2024-11-05)
PROC: 02H633Z Insertion of Infusion Device into Right Atrium, Percutaneous Approach (ICD-10-PCS; 2024-11-06)
PROC: B548ZZA Ultrasonography of Superior Vena Cava, Guidance (ICD-10-PCS; 2024-11-06)
PROC: 5A1D70Z Performance of Urinary Filtration, Intermittent, Less than 6 Hours Per Day (ICD-10-PCS; 2024-11-07)
PROC: 5A1D70Z Performance of Urinary Filtration, Intermittent, Less than 6 Hours Per Day (ICD-10-PCS; 2024-11-09)
PROC: 5A1D70Z Performance of Urinary Filtration, Intermittent, Less than 6 Hours Per Day (ICD-10-PCS; 2024-11-11)
PROC: 5A1D70Z Performance of Urinary Filtration, Intermittent, Less than 6 Hours Per Day (ICD-10-PCS; 2024-11-13)
PROC: 5A1D70Z Performance of Urinary Filtration, Intermittent, Less than 6 Hours Per Day (ICD-10-PCS; 2024-11-15)
PROC: 5A1955Z Respiratory Ventilation, Greater than 96 Consecutive Hours (ICD-10-PCS; principal; 2024-11-16)
PROC: 0B110F4 Bypass Trachea to Cutaneous with Tracheostomy Device, Open Approach (ICD-10-PCS; 2024-11-16)
PROC: B548ZZA Ultrasonography of Superior Vena Cava, Guidance (ICD-10-PCS; 2024-11-16)
PROC: 02HV33Z Insertion of Infusion Device into Superior Vena Cava, Percutaneous Approach (ICD-10-PCS; 2024-11-16)
PROC: 0DH63UZ Insertion of Feeding Device into Stomach, Percutaneous Approach (ICD-10-PCS; 2024-11-26)
PROC: 0DB68ZX Excision of Stomach, Via Natural or Artificial Opening Endoscopic, Diagnostic (ICD-10-PCS; 2024-11-26)
PROC: GZ56ZZZ Individual Psychotherapy, Supportive (ICD-10-PCS; 2024-12-10)
PROC: 0B21XFZ Change Tracheostomy Device in Trachea, External Approach (ICD-10-PCS; 2024-12-11)
PROC: 0DP6XUZ Removal of Feeding Device from Stomach, External Approach (ICD-10-PCS; 2025-01-13)
DX: A41.81 Sepsis due to Enterococcus (principal); J96.01 Acute respiratory failure with hypoxia; J96.02 Acute respiratory failure with hypercapnia; N17.0 Acute kidney failure with tubular necrosis; J15.1 Pneumonia due to Pseudomonas; G93.41 Metabolic encephalopathy; Z59.00 Homelessness unspecified; I48.92 Unspecified atrial flutter; I50.30 Unspecified diastolic (congestive) heart failure; J44.1 Chronic obstructive pulmonary disease with (acute) exacerbation; E66.2 Morbid (severe) obesity with alveolar hypoventilation; E87.1 Hypo-osmolality and hyponatremia; Z68.43 Body mass index [BMI] 50.0-59.9, adult; E87.0 Hyperosmolality and hypernatremia; E27.40 Unspecified adrenocortical insufficiency; R18.8 Other ascites; N39.0 Urinary tract infection, site not specified; E87.29 Other acidosis; E22.1 Hyperprolactinemia; J44.0 Chronic obstructive pulmonary disease with (acute) lower respiratory infection; Z99.11 Dependence on respirator [ventilator] status; E11.65 Type 2 diabetes mellitus with hyperglycemia; E83.42 Hypomagnesemia; E11.43 Type 2 diabetes mellitus with diabetic autonomic (poly)neuropathy; K31.84 Gastroparesis; B35.1 Tinea unguium; Z99.2 Dependence on renal dialysis; E87.5 Hyperkalemia; Q23.81 Bicuspid aortic valve; F14.10 Cocaine abuse, uncomplicated; Z91.199 Patient's noncompliance with other medical treatment and regimen due to unspecified reason; S31.113A Laceration without foreign body of abdominal wall, right lower quadrant without penetration into peritoneal cavity, initial encounter; B19.20 Unspecified viral hepatitis C without hepatic coma; I48.91 Unspecified atrial fibrillation; Z88.0 Allergy status to penicillin; M06.9 Rheumatoid arthritis, unspecified; R13.12 Dysphagia, oropharyngeal phase; K29.30 Chronic superficial gastritis without bleeding; K29.80 Duodenitis without bleeding; E03.9 Hypothyroidism, unspecified; E87.6 Hypokalemia; E78.00 Pure hypercholesterolemia, unspecified; D64.9 Anemia, unspecified; D69.6 Thrombocytopenia, unspecified; K74.60 Unspecified cirrhosis of liver; E87.8 Other disorders of electrolyte and fluid balance, not elsewhere classified; R76.8 Other specified abnormal immunological findings in serum; R63.4 Abnormal weight loss; E78.1 Pure hyperglyceridemia; F17.210 Nicotine dependence, cigarettes, uncomplicated; D72.819 Decreased white blood cell count, unspecified; Z53.29 Procedure and treatment not carried out because of patient's decision for other reasons; Z79.4 Long term (current) use of insulin; Z78.1 Physical restraint status; Z78.9 Other specified health status; Z82.49 Family history of ischemic heart disease and other diseases of the circulatory system; Z82.5 Family history of asthma and other chronic lower respiratory diseases; Z83.3 Family history of diabetes mellitus; Z88.6 Allergy status to analgesic agent; I08.1 Rheumatic disorders of both mitral and tricuspid valves; X58.XXXA Exposure to other specified factors, initial encounter; Y93.89 Activity, other specified; Y92.89 Other specified places as the place of occurrence of the external cause; Y99.8 Other external cause status; Y83.8 Other surgical procedures as the cause of abnormal reaction of the patient, or of later complication, without mention of misadventure at the time of the procedure; Y92.238 Other place in hospital as the place of occurrence of the external cause; R58 Hemorrhage, not elsewhere classified
CPT/HCPCS: 31500; 31720; 36415; 36556; 36573; 36600; 70490; 71045; 71275; 74018; 74176; 74230; 76604; 76700; 76705; 76937; 78580; 80048; 80053; 80061; 80069; 80076; 80202; 80305; 81003; 82024; 82040; 82043; 82088; 82140; 82375; 82533; 82550; 82570; 82607; 82805; 82962; 83001; 83002; 83036; 83540; 83550; 83605; 83615; 83735; 83880; 83930; 83935; 84100; 84132; 84134; 84145; 84146; 84244; 84300; 84439; 84443; 84478; 84484; 84550; 85014; 85018; 85025; 85027; 85049; 85379; 85651; 86256; 86376; 86431; 86705; 86709; 86850; 86880; 86900; 87070; 87077; 87186; 87340; 88305; 88312; 88313; 90935; 92523; 92610; 92611; 93005; 93306; 93308; 93970; 93971; 94002; 94003; 94070; 94640; 94660; 94664; 94668; 94760; 97163; 97164; 97166; 97530; 97535; 98960; 99291; A4606; A6261; A6449; C1725; C1752; C1887; J0282; J0360; J0461; J0610; J0690; J0692; J1160; J1630; J1644; J1650; J1815; J1938; J2003; J2004; J2060; J2270; J2371; J2405; J2470; J2597; J2704; J2765; J2919; J3010; J3260; J3370; J3430; J3475; J3480; J3490; J7030; J7042; J7050; J7060; J7512; J7626; J8597; Q0163; Q9967